=== PATIENT | male | born 1950 | race Caucasian/White ===

== ENCOUNTER → 2017-06-26 15:03 | Outpatient (CLI) | payer MEDICARE, BC, SELFPAY ==
[2017-06-26 18:14] LABS: BUN 19 mg/dL (7-18); BUN/Creat Ratio 16.7 RATIO (10-20); Creatinine, Serum 1.14 mg/dL (0.70-1.30); EST Glomerular Filtration Rate 69 mL/min (>60); Est Glom Filt Rate - Afr Amer 83 mL/min (>60); Glucose 93 mg/dL (74-106)
[2017-06-26 18:15] LABS: ALB/GLOB Ratio 1.1 RATIO (0.9-2.4); AST(SGOT) 30 U/L (15-37); Alanine Aminotransfer ALT/SGPT 33 U/L (16-61); Albumin, Serum 4.2 g/dL (3.2-5.0); Alkaline Phosphatase 76 U/L (45-117); Anion Gap 9 (5-15); Calcium,Total 8.9 mg/dL (8.5-10.1); Chloride 102 mmol/L (98-107); Globulin 3.8 g/dL (2.2-4.2); Potassium 3.6 mmol/L (3.5-5.1); Sodium Level 139 mmol/L (136-145)
== END ==
PROVIDERS: Family Provider Family Medicine; PCP Family Medicine; Visit Provider Family Medicine
DX: I10 Essential (primary) hypertension (principal)
CPT/HCPCS: 36415; 80053

== ENCOUNTER → 2017-07-11 08:36 | Outpatient (CLI) | payer MEDICARE, BC, SELFPAY ==
--- NOTE | 2017-07-11 08:40 | AAAS_ITS ---
Reason For Study: AAA screening Aorta Measurements Aorta Doppler Measurements Proximal aorta measures1.5 x 1.6cm. in cross- Peak systolic flow velocities within the proximal sectional axis. aorta measure 62.9 cm/sec. Proximal aorta measures1.5cm. in longitudinal Peak systolic flow velocities within the mid axis. aorta measure 86.6 cm/sec. Mid aorta measures1.5 x 1.4cm. in cross-sectionalPeak systolic flow velocities within the distal axis. aorta measure 72.0 cm/sec. Mid aorta measures1.4cm. in longitudinal axis. Distal aorta measures1.3 x 1.4cm. in cross- sectional axis. Distal aorta measures1.4cm. in longitudinal axis. Left Iliac Artery Left iliac artery measures .82 cm. in the longitudinal axis. Left iliac artery measures .87 x .88 cm. in the cross-sectional axis. Peak systolic velocity in the left iliac artery measures 102.0 cm/sec. Right Iliac Artery Right iliac artery measures .82 cm. in the longitudinal axis. Right iliac artery measures .81 x .83 cm. in the cross-sectional axis. Peak systolic velocity in the right iliac artery measures 117.0 cm/sec. Procedure Aorta IVC Iliac vasculature or bypass grafts [id number]. Exam performed in department. Interpretation Summary The dimensions of the intra-abdominal aorta are normal, without evidence of aneurysmal dilatation. The iliac arteries are also normal in size bilaterally. The intra-abdominal aorta and iliac arteries are patent, demonstrating normal, pulsatile arterial flow and peak systolic velocities. Ordering Physician: Ignacio Holloway Referring Physician: Ignacio Holloway Performed By: Melly Salguero RVT
== END ==
PROVIDERS: Family Provider Family Medicine; PCP Family Medicine; Visit Provider Family Medicine
DX: Z00.00 Encounter for general adult medical examination without abnormal findings (principal); I10 Essential (primary) hypertension
CPT/HCPCS: 76706

== ENCOUNTER → 2017-12-25 10:08 | Outpatient (CLI) | payer MEDICARE, BC, SELFPAY ==
--- NOTE | 2017-12-25 10:12 | RAD_ITS ---
STUDY: X-RAY - LEFT KNEE REASON FOR EXAM: Male, 67 years old. Osteoarthritis of the knee TECHNIQUE: 4 view(s) of the knee. Including weightbearing view COMPARISON: None. FINDINGS: Normal visualized distal femur. Normal visualized proximal tibia and fibula. Normal proximal tibiofibular articulation. Normal medial femorotibial compartment. Normal lateral femorotibial compartment. There is mild degenerative arthrosis of the patellofemoral articulation. Joint spaces appear maintained The soft tissue structures are unremarkable. RAD/Knee 4 or More Views IMPRESSION: Minimal patellofemoral joint degenerative change. Normal joint spacing. Electronically Signed: Manuel Arthur DO at 8:22 EDT Tel , Service support ,
--- NOTE | 2017-12-25 10:12 | RAD_ITS ---
STUDY: X-RAY RIGHT FOOT, FIRST TOE REASON FOR EXAM: Male, 67 years old. First toe pain TECHNIQUE: 3 view(s) of the toe were obtained. COMPARISON: None. FINDINGS: Normal visualized metatarsus. There is arthrosis of the metatarsophalangeal (M.T.P.) joint. Normal interphalangeal joints. Normal phalanges and interphalangeal joints. The soft tissue structures are unremarkable. RAD/Toe(s) Min 2 Views IMPRESSION: Minimal osteophytosis at the first metatarsophalangeal joint. Electronically Signed: Manuel Arthur DO at 8:25 EDT Tel , Service support ,
--- NOTE | 2017-12-25 10:12 | RAD_ITS ---
STUDY: X-RAY LEFT FOOT, FIRST TOE REASON FOR EXAM: Male, 67 years old. First toe pain TECHNIQUE: 3 view(s) of the toe were obtained. COMPARISON: None. FINDINGS: Normal visualized metatarsus. There is arthrosis of the metatarsophalangeal (M.T.P.) joint. Normal interphalangeal joints. Normal phalanges and interphalangeal joints. There is no demonstrated fracture. The soft tissue structures are unremarkable. RAD/Toe(s) Min 2 Views IMPRESSION: Mild degenerative change at the first metatarsophalangeal joint. Electronically Signed: Manuel Arthur DO at 8:25 EDT Tel , Service support ,
== END ==
PROVIDERS: Family Provider Family Medicine; PCP Family Medicine; Visit Provider Family Medicine
DX: M17.10 Unilateral primary osteoarthritis, unspecified knee (principal); M79.674 Pain in right toe(s); M79.675 Pain in left toe(s)
CPT/HCPCS: 73564; 73660

== ENCOUNTER → 2017-12-28 12:08 | Outpatient (CLI) | payer MEDICARE, BC, SELFPAY ==
[2017-12-28 14:40] LABS: ALB/GLOB Ratio 1.1 RATIO (0.9-2.4); AST(SGOT) 26 U/L (15-37); Alanine Aminotransfer ALT/SGPT 38 U/L (16-61); Albumin, Serum 3.9 g/dL (3.2-5.0); Alkaline Phosphatase 77 U/L (45-117); Anion Gap 10 (5-15); BUN 24 mg/dL (7-18); BUN/Creat Ratio 18.8 RATIO (10-20); Calcium,Total 8.9 mg/dL (8.5-10.1); Chloride 105 mmol/L (98-107); Cholesterol 151 mg/dL (200); Creatinine, Serum 1.28 mg/dL (0.70-1.30); EST Glomerular Filtration Rate 60 mL/min (>60); Est Glom Filt Rate - Afr Amer 72 mL/min (>60); Globulin 3.7 g/dL (2.2-4.2); Glucose 101 mg/dL (74-106); High Density Lipoprotein 47 mg/dL; Potassium 3.7 mmol/L (3.5-5.1); Protein, Total 7.6 g/dL (6.4-8.2); Sodium Level 143 mmol/L (136-145); Triglycerides 134 mg/dL; Very Low Density Lipoprotein 27 mg/dL (5-40)
== END ==
PROVIDERS: Family Provider Family Medicine; PCP Family Medicine; Visit Provider Family Medicine
DX: I10 Essential (primary) hypertension (principal)
CPT/HCPCS: 36415; 80053; 80061

== ENCOUNTER → 2018-07-12 13:58 | Outpatient (CLI) | payer MEDICARE, BC, SELFPAY ==
[2018-07-12 16:12] LABS: Absolute Lymphocyte Count 1.29 X10^3/ul (0.83-4.51); Absolute Neutrophil Count 2.2 X10^3/uL (2.0-7.7); Basophil# 0.02 X10^3/uL; Basophil% 0.5 % (0-1); Eosinophil# 0.09 X10^3/uL; Eosinophils% 2.3 % (0-5); Hematocrit 41.3 % (40-54); Hemoglobin 14.2 g/dl (13.0-16.5); Lymphocyte # 1.29 X10^3/ul (4.0); Mean Corp Hgb Conc 34.4 g/gl (32-36); Mean Corpuscular Hgb 29.8 pg (27.0-32.0); Mean Corpuscular Volume 86.8 fL (80-94); Monocyte% 7.7 % (0-10); Neutrophil # 2.21 X10^3/uL (2.7-7.7); Neutrophil % 56.5 % (47-70); POSITIVE COUNT NO; POSITIVE DIFFERENTIAL NO; POSITIVE MORPHOLOGY NO; Platelet Count 211 K/mm3 (150-450); RBC Distribution Width CV 12.3 % (11.6-14.6); RBC Distribution Width SD 38.3 fl (35.1-43.9); Red Blood Count 4.76 M/mm3 (4.6-6.2); White Blood Count 3.9 K/mm3 (4.4-11.0)
[2018-07-12 16:34] LABS: ALB/GLOB Ratio 1.1 RATIO (0.9-2.4); AST(SGOT) 24 U/L (15-37); Alanine Aminotransfer ALT/SGPT 35 U/L (16-61); Albumin, Serum 4.1 g/dL (3.2-5.0); Alkaline Phosphatase 82 U/L (45-117); Anion Gap 8 (5-15); BUN 21 mg/dL (7-18); BUN/Creat Ratio 18.8 RATIO (10-20); Calcium,Total 8.9 mg/dL (8.5-10.1); Chloride 104 mmol/L (98-107); Cholesterol 150 mg/dL (200); Creatinine, Serum 1.12 mg/dL (0.70-1.30); EST Glomerular Filtration Rate 70 mL/min (>60); Est Glom Filt Rate - Afr Amer 84 mL/min (>60); Globulin 3.6 g/dL (2.2-4.2); Glucose 95 mg/dL (74-106); High Density Lipoprotein 48 mg/dL; PSA,Total - Annual Screen 2.96 ng/mL (0.00-4.00); Protein, Total 7.7 g/dL (6.4-8.2); Sodium Level 140 mmol/L (136-145); Triglycerides 163 mg/dL; Very Low Density Lipoprotein 33 mg/dL (5-40)
== END ==
PROVIDERS: Family Provider Family Medicine; PCP Family Medicine; Visit Provider Family Medicine
DX: Z00.01 Encounter for general adult medical examination with abnormal findings (principal); I10 Essential (primary) hypertension; E78.5 Hyperlipidemia, unspecified; Z12.5 Encounter for screening for malignant neoplasm of prostate
CPT/HCPCS: 36415; 80053; 80061; 84153; 85025; G0103

== ENCOUNTER 2018-12-05 06:43 | Day surgery (SDC) | payer MEDICARE, BC, SELFPAY ==
[2018-12-05 07:01] VITALS: BP 141/82; PULSE 68; RESP 16; TEMP 36.5; O2SAT 98; BMI 24.7
[2018-12-05] MEDS: Lactated Ringers 1,000 ML 100 ML IV (07:13)
--- NOTE | 2018-12-05 07:39 | H&P.OPEN ---
History of Present Illness Date of Admission: 12/05/18 The patient is a 68 year old M presents for screening colonoscopy. Patient's last colonoscopy was about 10 years ago per patient it was negative. Patient denies any family history of colon cancer. Denies any abdominal pain, nausea, vomiting, reflux. Patient has bowel movements about every day denies any blood in stool. Past Medical/Surgical History - Planned Operation Planned Operative Procedure/s: COLONOSCOPY/EGD Date of Operative Procedure: 12/05/18 Permit Signed: Yes S.O.S: No Is This Patient Having a Total Joint: No - Previous Hospitalizations/Surgeries HX Hospitalizations: No HX of Surgeries: HERNIA?laparoscopic bilateral inguinal. COLONOSCOPY Any Problems With Anesthesia: No You/Your Family Experience Fever (Hyperthermia) With Anes: No Cholinesterase deficiency: No - Cardiovascular Hx Chest Pain within Last 2 months: No Hx of Irregular Heartbeat and/or Afib: No Hx Heart Attack: No Hx Congestive Heart Failure: No Hx Rheumatic Fever: No Hx Hypertension: Yes - ON MED, CONTROLLED Hx Internal Defibrillator: No Hx Pacemaker: No Hx Cardiac Catheterization: No Hx Cardiac Surgery/Stents/Etc.: No Hx Stress Test: Yes - > 10 YRS AGO HX Edema: No Hx Pain in Legs when Walking/Leg Cramps: No - Respiratory Chronic Cough: No HX of Shortness of Breath: No Hoarseness: No Hx Chronic Obstructive Pulmonary Disease (COPD): No Hx Asthma: No Hx Emphysema: No Hx Sleep Apnea: No Hx Oxygen Use at Home: No Hx Respiratory Tract Infection/Cold (presently): No Do You Snore Loudly (louder than talking or can be heard): No Do You Often Feel Tired/ Fatigued/ Sleepy Dring Daytime?: No Has Anyone Observed You Stop Breathing During Sleep?: No Result (for STOP score): Negative Hx Smoking: No Smoking Status: Never smoker - Gastrointestinal Hx Gastroesophageal Reflux: No Hx Gastrointestinal Disorders: No Hx Gastrointestinal Bleed: No Hx Ulcer: No Hx Hiatal Hernia: No Difficulty Chewing/Swallowing: No Recent Onset of Swallowing Problems: No Special diet followed at home: No Hx Unplanned Weight Loss of 20#: No HX Unplanned Weight Gain of 20#: No - Neurological Hx Seizures: No HX Syncope/Blackout Spells/Unconsciousness: No Hx CVA/Stroke: No Hx Transient Ischemic Attacks (TIA): No Hx Multiple Sclerosis: No Hx Parkinson's Disease: No Hx Head/Neck Injury: No Hx Headaches: No Hx Back Injury/Pain: No Recent Onset of Speech Difficulty: No Restless Legs: No Does patient have nerve stimulator: No - Blood Disorder Hx Leukemia: No Bleeding Tendencies: No Hx Deep Vein Thrombosis: No Hx High Cholesterol: Yes - ON MED Blood Transmitted Disease: No Hx Hepatitis: No Hx Cirrhosis: No Hx Anemia: No Hx Blood Disorders: No - Genitourinary Hx Renal Disease: No - Musculoskeletal Hx Arthritis: No Hx Rheumatoid Arthritis: No Hx Gout: No Recent Onset of an Orthopedic Problem: No - Endocrine Hx Diabetes: No Thyroid Disease: No Hx Steroid Therapy: No - Psycho/Social Hx Substance Use: No Hx Alcohol Use: No Hx Anxiety: No Hx Depression: No Mental Illness: No Hx Dementia: No - Miscellaneous Hx Cancer: No Recent Exposure to Contagious Disease: No Active MRSA: No Hx of C-Diff: No Any Loose Teeth: No Allergies No Known Allergies Allergy (Verified 12/03/18 14:25) - Discharge Is Pt Admitted From a Skilled Nursing, or a Halfway: No Who Could Help: After D/C, Where Do you Plan to Go: Return Home - Physical Exam General: Alert, Oriented x3, Cooperative, No apparent distress HEENT: Atraumatic Lungs: Normal air movement Cardiovascular: Regular rate Abdomen: Soft, Non Tender, Non-Distended Extremities: No clubbing, No cyanosis, No edema Neurological: Cranial nerves II-XII grossly intact Psych/Mental Status: Normal Affect Vital Signs Temp Pulse Resp BP Pulse Ox 97.7 F L 68 16 141/82 H 98 12/05/18 07:01 12/05/18 07:01 12/05/18 07:01 12/05/18 07:01 12/05/18 07:01 Oxygen Delivery Method Room Air Weight: 172 lb 9.951 oz Body Mass Index (BMI) 24.7 Assessment/Plan 68-year-old male for screening for colon cancer Surgery Risks - Colonoscopy I discussed with the patient the risks of the procedure: Yes Risks Include but are not Limited To: Risks include but are not limited to: Bleeding, perforation requiring further surgery, inability to complete colonoscopy requiring barium enema. Patient had no further questions
[2018-12-05 08:20] VITALS: BP 106/68; BP 141/82; PULSE 80; RESP 16; TEMP 36.2; O2SAT 97
--- NOTE | 2018-12-05 08:23 | OP.ENDO_ITS ---
12/05/2018 Lacy Menard [place] [id number] [address] Re : Colonoscopy procedure for Keith Frederick Dear Dr. Menard This procedure was performed on Wednesday, December 05, 2018. My impressions and recommendations are as follows: Impressions : - Diverticulosis in the sigmoid colon, in the descending colon and in the ascending colon. - The examination was otherwise normal on direct and retroflexion views. - No specimens collected. Recommendations : - Discharge patient to home. - High fiber diet. - Continue present medications. - Repeat colonoscopy in 10 years for screening purposes. My findings are described in the full procedure note, which is enclosed. If I can be of further assistance, please feel free to contact me at Doctor phone number(s): , Work: . Sincerely, MD María Cyr MD 12/05/2018 8:22:37 AM This report has been signed electronically.
[2018-12-05 08:25] VITALS: BP 115/67; BP 141/82; PULSE 70; RESP 16; O2SAT 96
[2018-12-05 08:30] VITALS: BP 116/64; BP 141/82; PULSE 65; RESP 16; O2SAT 95
[2018-12-05 08:35] VITALS: BP 118/69; BP 141/82; PULSE 60; RESP 16; TEMP 36.1; O2SAT 98
[2018-12-05 09:11] VITALS: BP 141/82
== END 2018-12-05 09:12 | disposition home or self-care (01) ==
LOC: EN 06:45 → AC 06:46
PROVIDERS: Family Provider Family Medicine; PCP Family Medicine; Referring Provider Family Medicine; Visit Provider Surgery
PROC: 0DJD8ZZ Inspection of Lower Intestinal Tract, Via Natural or Artificial Opening Endoscopic (ICD-10-PCS; CPT 45378; principal; 2018-12-05 07:55)
DX: Z12.11 Encounter for screening for malignant neoplasm of colon (principal); K57.30 Diverticulosis of large intestine without perforation or abscess without bleeding; I10 Essential (primary) hypertension; E78.00 Pure hypercholesterolemia, unspecified; Z79.82 Long term (current) use of aspirin; Z79.899 Other long term (current) drug therapy
CPT/HCPCS: G0121; J7120

== ENCOUNTER → 2019-10-04 07:55 | Outpatient (CLI) | payer MEDICARE, BC, SELFPAY ==
[2019-10-04 09:53] LABS: Absolute Lymphocyte Count 1.52 X10^3/uL (0.83-4.51); Absolute Neutrophil Count 2.2 X10^3/uL (2.0-7.7); Basophil# 0.02 X10^3/uL; Basophil% 0.5 % (0-1); Eosinophil# 0.14 X10^3/uL; Eosinophils% 3.3 % (0-5); Hematocrit 38.1 % (40-54); Hemoglobin 12.5 g/dL (13.0-16.5); Lymphocyte # 1.52 X10^3/ul (4.0); Lymphocyte % 35.7 % (19-41); Mean Corp Hgb Conc 32.8 g/dL (32-36); Mean Corpuscular Hgb 29.6 pg (27.0-32.0); Mean Corpuscular Volume 90.3 fL (80-94); Mean Platelet Vol. 10.1 fl (6.2-12.0); Monocyte# 0.35 X10^3/uL; Monocyte% 8.2 % (0-10); NRBC Flagged by Analyzer 0 % (0-5); Neutrophil # 2.22 X10^3/uL (2.7-7.7); Neutrophil % 52.1 % (47-70); Platelet Count 207 K/mm3 (150-450); RBC Distribution Width CV 12.7 % (11.6-14.6); RBC Distribution Width SD 41.1 fl (35.1-43.9); Red Blood Count 4.22 M/mm3 (4.6-6.2); White Blood Count 4.3 K/mm3 (4.4-11.0)
[2019-10-04 10:08] LABS: AST(SGOT) 27 U/L (15-37); Alanine Aminotransfer ALT/SGPT 35 U/L (16-61); Albumin, Serum 3.7 g/dL (3.2-5.0); Alkaline Phosphatase 74 U/L (45-117); Anion Gap 6 (5-15); BUN 21 mg/dL (7-18); BUN/Creat Ratio 16.7 RATIO (10-20); Calcium,Total 8.8 mg/dL (8.5-10.1); Chloride 102 mmol/L (98-107); Cholesterol 159 mg/dL (200); Creatinine, Serum 1.26 mg/dL (0.70-1.30); EST Glomerular Filtration Rate 61 mL/min (>60); Est Glom Filt Rate - Afr Amer 73 mL/min (>60); Globulin 3.6 g/dL (2.2-4.2); Glucose 121 mg/dL (74-106); High Density Lipoprotein 50 mg/dL; Potassium 3.2 mmol/L (3.5-5.1); Protein, Total 7.3 g/dL (6.4-8.2); Sodium Level 139 mmol/L (136-145); Triglycerides 134 mg/dL; Very Low Density Lipoprotein 27 mg/dL (5-40)
== END ==
PROVIDERS: PCP Family Medicine; Referring Provider Family Medicine; Visit Provider Family Medicine
DX: I10 Essential (primary) hypertension (principal); E78.5 Hyperlipidemia, unspecified
CPT/HCPCS: 36415; 80053; 80061; 85025

== ENCOUNTER → 2019-11-08 08:38 | Outpatient (CLI) | payer MEDICARE, BC, SELFPAY ==
[2019-11-08 09:52] LABS: Absolute Neutrophil Count 2.7 X10^3/uL (2.0-7.7); Basophil# 0.02 X10^3/uL; Basophil% 0.4 % (0-1); Eosinophil# 0.14 X10^3/uL; Eosinophils% 3.1 % (0-5); Hematocrit 42.8 % (40-54); Hemoglobin 14.3 g/dL (13.0-16.5); Lymphocyte % 28.6 % (19-41); Mean Corp Hgb Conc 33.4 g/dL (32-36); Mean Corpuscular Hgb 29.8 pg (27.0-32.0); Mean Corpuscular Volume 89.2 fL (80-94); Mean Platelet Vol. 9.7 fl (6.2-12.0); Monocyte# 0.36 X10^3/uL; Monocyte% 7.9 % (0-10); NRBC Flagged by Analyzer 0 % (0-5); Neutrophil # 2.71 X10^3/uL (2.7-7.7); Neutrophil % 59.8 % (47-70); Platelet Count 199 K/mm3 (150-450); RBC Distribution Width SD 39.2 fl (35.1-43.9); White Blood Count 4.5 K/mm3 (4.4-11.0)
[2019-11-08 10:13] LABS: Hemoglobin A1c 5.7 % (3.8-5.6)
[2019-11-08 10:15] LABS: Vitamin B12 365 pg/mL (211-911)
[2019-11-08 10:39] LABS: Ferritin 17 ng/mL (26-388); Iron 156 ug/dL (65-175); Iron Binding Capacity,Total 377 ug/dL (250-450); PERCENT IRON SATURATION 41.4 % (15.0-55.0)
== END ==
PROVIDERS: PCP Family Medicine; Referring Provider Family Medicine; Visit Provider Family Medicine
DX: R73.01 Impaired fasting glucose (principal); D64.9 Anemia, unspecified
CPT/HCPCS: 36415; 82607; 82728; 82746; 83036; 83540; 83550; 85025

== ENCOUNTER → 2020-09-03 14:20 | Outpatient (CLI) | payer MEDICARE, BC, SELFPAY ==
[2020-09-03 17:33] LABS: Absolute Lymphocyte Count 1.33 X10^3/uL (0.83-4.51); Absolute Neutrophil Count 2.7 X10^3/uL (2.0-7.7); Basophil# 0.03 X10^3/uL; Basophil% 0.7 % (0-1); Eosinophils% 2.2 % (0-5); Hematocrit 42.2 % (40-54); Hemoglobin 13.8 g/dL (13.0-16.5); Lymphocyte # 1.33 X10^3/ul (0.83-4.51); Mean Corp Hgb Conc 32.7 g/dL (32-36); Mean Corpuscular Hgb 29.9 pg (27.0-32.0); Mean Corpuscular Volume 91.5 fL (80-94); Mean Platelet Vol. 9.9 fl (6.2-12.0); Monocyte# 0.43 X10^3/uL; Monocyte% 9.4 % (0-10); NRBC Flagged by Analyzer 0 % (0-5); Neutrophil # 2.68 X10^3/uL (2.7-7.7); Neutrophil % 58.5 % (47-70); Platelet Count 215 K/mm3 (150-450); Red Blood Count 4.61 M/mm3 (4.6-6.2); White Blood Count 4.6 K/mm3 (4.4-11.0)
[2020-09-03 17:46] LABS: AST(SGOT) 31 U/L (15-37); Alanine Aminotransfer ALT/SGPT 32 U/L (16-61); Alkaline Phosphatase 68 U/L (45-117); Anion Gap 5 (5-15); BUN 24 mg/dL (7-18); BUN/Creat Ratio 19.7 RATIO (10-20); Calcium,Total 8.7 mg/dL (8.5-10.1); Chloride 104 mmol/L (98-107); Cholesterol 153 mg/dL (200); Creatinine, Serum 1.22 mg/dL (0.70-1.30); EST Glomerular Filtration Rate 63 mL/min (>60); Est Glom Filt Rate - Afr Amer 76 mL/min (>60); Glucose 90 mg/dL (74-106); High Density Lipoprotein 53 mg/dL; PSA,Total - Annual Screen 1.27 ng/mL (0.00-4.00); Potassium 3.5 mmol/L (3.5-5.1); Sodium Level 137 mmol/L (136-145); Triglycerides 131 mg/dL; Very Low Density Lipoprotein 26 mg/dL (5-40)
== END ==
PROVIDERS: PCP Family Medicine; Referring Provider Family Medicine; Visit Provider Family Medicine
DX: Z00.00 Encounter for general adult medical examination without abnormal findings (principal); I10 Essential (primary) hypertension; E78.5 Hyperlipidemia, unspecified; Z12.5 Encounter for screening for malignant neoplasm of prostate
CPT/HCPCS: 36415; 80053; 80061; 84153; 85025; G0103

== ENCOUNTER 2020-11-12 21:27 | Inpatient (IN) | payer MEDICARE, BC, SELFPAY ==
[2020-11-12 21:28] VITALS: BP 102/67; PULSE 98; RESP 16; TEMP 36.5; O2SAT 100; BMI 24.2
--- NOTE | 2020-11-12 22:09 | CT_ITS ---
STUDY: CT ABDOMEN AND PELVIS WITH CONTRAST REASON FOR EXAM: Male, 70 years old. diverticulitis RADIATION DOSAGE (If Supplied By Facility): CTDIvol = ( ) mGy, DLP = ( ) mGycm TECHNIQUE: Transaxial images were obtained from the dome of the diaphragm to the symphysis pubis without oral contrast. IV 100mL Isovue-300 was administered. Sagittal and coronal images were reconstructed. Individualized dose optimization techniques were used for this CT. COMPARISON: None. FINDINGS: Atelectasis/scarring within the lungs. The visualized portions of the heart are within normal limits. Normal liver. Normal gallbladder and extrahepatic biliary system. Normal spleen. Normal pancreas. Normal bilateral adrenal glands. 3 mm nonobstructing RIGHT nephrolithiasis. Subcentimeter low-attenuation structure LEFT kidney too small to characterize by CT criteria however statistically likely represent cysts. No hydronephrosis identified. Evaluation of bowel limited by lack of oral contrast material. Tiny hiatal hernia. Gastric wall thickening may be related to underdistention versus gastritis in the appropriate clinical setting. There is no dilated loops of small bowel by CT criteria. There are multiple colonic diverticula consistent with diverticulosis. The descending colonic wall thickening with associated stranding. Within the region of thickening and stranding there is a focal outpouching measuring 1.7 x 1.3 cm. The appendix is visualized and appears normal. There is diffuse atherosclerotic calcification of the abdominal aorta, without a demonstrated aneurysm. Normal inferior vena cava. Normal retroperitoneum. The urinary bladder is decompressed. Small amount of fluid within the pelvis as well as bilateral paracolic gutters. Evidence of prior bilateral inguinal hernia repair. There are diffuse degenerative changes of the visualized lumbar spine. Severe neural foraminal narrowing L4-L5. CT/Abdomen/Pelvis W IV Cont ONLY IMPRESSION: Diverticulosis. Descending colonic wall thickening with associated stranding likely representing acute diverticulitis. Within the area of colonic thickening and stranding there is an outpouching from the colon which may represent a prominent diverticulum. A contained perforation thought less likely. There is no definitive free air identified. There is fluid seen within the paracolic gutters and pelvis. Recommend follow-up to resolution. Nonobstructing RIGHT nephrolithiasis. Other findings as above. Electronically Signed: Con Raygoza MD at 23:41 EDT Tel , Service support ,
--- NOTE | 2020-11-12 22:10 | EX.ED.DYSGE1 ---
HPI History of Present Illness Chief Complaint: Abd Pain Informant: patient and spouse/S.O. Narrative Narrative: 70-year-old male presents the emergency room with left lower quadrant abdominal pain. He tells me that last week he was diagnosed clinically with diverticulitis and started on Cipro and Flagyl. He states that by Monday he was feeling better and it was 95% gone. Today he notes the pain came back and has been constant. He noted a temperature at home of 100.6. He notes his bowel movements have been loose but not diarrhea. No blood in the stool. He has never been diagnosed with diverticulitis prior to this event. No urinary symptoms. Pain does not radiate. Is worse with movement. [facility] Medical History High cholesterol Hypertension Home Medications aspirin 81 mg PO DAILY@0800 12/03/18 [History Last Taken Unknown] hydrochlorothiazide 25 mg PO DAILY 12/03/18 [History Last Taken Unknown] simvastatin 40 mg PO QHS 12/03/18 [History Last Taken Unknown] Allergy/AdvReac Type Severity Reaction Status Date / Time No Known Allergies Allergy Verified 11/12/20 21:28 Surgical History H/O hernia repair Social History (Updated 11/12/20 @ 22:[address] Mitchel Palm DO) Smoking Status: Never smoker substance use type: does not use ROS ROS ED Constitutional Constitutional ED: Reports fever(s); Denies chills or weight loss Eyes Eyes: Denies change in vision or diplopia ENT ENT ED: Denies ear pain, rhinorrhea or sore throat Cardiovascular Cardiovascular: Denies chest pain, orthopnea, palpitations or racing heartbeat Respiratory/Chest Respiratory/Chest: Denies cough, dyspnea or orthopnea Gastrointestinal Gastrointestinal: Reports abdominal pain; Denies diarrhea, nausea or vomiting Genitourinary Genitourinary ED: Denies dysuria, hematuria or urinary frequency Musculoskeletal Musculoskeletal: Denies arthralgias or myalgias Integumentary Denies abscess or rash Neurologic Neurologic: Denies headache(s) or weakness Psychiatric Psychiatric: Denies anxiety, depression, suicidal ideation or suicidal thoughts Endocrine Endocrinology: Denies polydipsia, polyphagia or polyuria Allergic/Immunologic Allergic/Immunologic ED: Denies mouth swelling, tongue swelling or urticaria EXAM Physical Exam Const Vital Signs: 11/12/20 21:28 Temperature 97.7 F L Temperature Source Temporal Pulse Rate 98 Respiratory Rate 16 Blood Pressure 102/67 Blood Pressure Mean 78 Pulse Ox 100 Oxygen Delivery Method Room Air Positive well nourished and well developed General Appearance ED: well developed HEENT Reports normocephalic, head/scalp atraumatic and moist mucous membranes Eyes PERRL and EOMs intact bilaterally Neck no lymphadenopathy, supple and no JVD Resp normal respiratory effort and clear to auscultation bilaterally Cardio regular rate, regular rhythm and no murmurs GI Palpation: soft, tender LLQ, guarding and rebound tenderness present Back/Spine no CVA tenderness and normal ROM Extremity normal to inspection General Extremety ED: Negative for edema General Extremity: Negative for edema Neuro oriented x3 and CN's II-XII intact bilaterally Sensorium / Orientation: alert Motor Exam: strength 5/5 throughout Psych mental status grossly normal Mood & Affect: Negative for depressed or tearful Skin no rashes or lesions noted and no wounds MDM MDM MDM Narrative Medical decision making narrative: White count 10.3. Lactic acid 1.1. Urinalysis negative. CT of the abdomen pelvis demonstrates acute sigmoid diverticulitis. Given his temperature at home and his recent treatment of diverticulitis with immediate return of symptoms patient was given Zosyn and our plan will be admission Lab Data Attestation: I reviewed the patient's lab results. Labs: Laboratory Results - last 24 hr 11/12/20 11/12/20 11/12/20 21:44 21:44 22:30 WBC 10.3 RBC 4.36 L Hgb 12.8 L Hct 38.6 L MCV 88.5 MCH 29.4 MCHC 33.2 RDW Std Deviation 37.9 RDW Coeff of [place] 11.9 Plt Count 298 MPV 9.1 Immature Gran % (Auto) 0.500 Neut % (Auto) 80.0 H Lymph % (Auto) 10.5 L [place] % (Auto) 7.8 Eos % (Auto) 0.9 Baso % (Auto) 0.3 Absolute Neuts (auto) 8.3 H Absolute Lymphs (auto) 1.08 Nucleated RBC % 0 Sodium 137 Potassium 3.7 Chloride 101 Carbon Dioxide 27.0 Anion Gap 9 BUN 16 Creatinine 1.05 Estim Creat Clear Calc 69.52 Est GFR (MDRD) Af Amer 90 Est GFR (MDRD) Non-Af 75 BUN/Creatinine Ratio 15.2 Glucose 120 H Lactic Acid Calcium 8.3 L Total Bilirubin 0.50 AST 24 ALT 42 Alkaline Phosphatase 62 Total Protein 7.4 Albumin 3.5 Globulin 3.9 Albumin/Globulin Ratio 0.9 Urine Color Yellow Urine Clarity Clear Urine pH 5.0 Ur Specific [place] 1.020 Urine Protein 15 H Urine Glucose (UA) Normal Urine Ketones 5 H Urine Occult Blood 10 H Urine Nitrite Negative Urine Bilirubin Negative Urine Urobilinogen Normal Ur Leukocyte Esterase 25 H Urine RBC 0 SEEN Urine WBC 0 SEEN Ur Squamous Epith Cells 0 SEEN Urine Bacteria 0 SEEN Urine Mucus 3+ 11/12/20 23:05 WBC RBC Hgb Hct MCV MCH MCHC RDW Std Deviation RDW Coeff of [place] Plt Count MPV Immature Gran % (Auto) Neut % (Auto) Lymph % (Auto) [place] % (Auto) Eos % (Auto) Baso % (Auto) Absolute Neuts (auto) Absolute Lymphs (auto) Nucleated RBC % Sodium Potassium Chloride Carbon Dioxide Anion Gap BUN Creatinine Estim Creat Clear Calc Est GFR (MDRD) Af Amer Est GFR (MDRD) Non-Af BUN/Creatinine Ratio Glucose Lactic Acid 1.1 Calcium Total Bilirubin AST ALT Alkaline Phosphatase Total Protein Albumin Globulin Albumin/Globulin Ratio Urine Color Urine Clarity Urine pH Ur Specific [place] Urine Protein Urine Glucose (UA) Urine Ketones Urine Occult Blood Urine Nitrite Urine Bilirubin Urine Urobilinogen Ur Leukocyte Esterase Urine RBC Urine WBC Ur Squamous Epith Cells Urine Bacteria Urine Mucus Radiography Diagnostic Testing: Radiology Impression Abdomen/Pelvis CT 11/12/20 22:09 IMPRESSION: Diverticulosis. Descending colonic wall thickening with associated stranding likely representing acute diverticulitis. Within the area of colonic thickening and stranding there is an outpouching from the colon which may represent a prominent diverticulum. A contained perforation thought less likely. There is no definitive free air identified. There is fluid seen within the paracolic gutters and pelvis. Recommend follow-up to resolution. Nonobstructing RIGHT nephrolithiasis. Other findings as above. Electronically Signed: Con Raygoza MD at 23:41 EDT Tel , Service support , Discharge Plan Triage Chief Complaint: Abd Pain ED Provider: Mitchel Palm Dx/Rx/DC Orders Prescriptions: No Action simvastatin 40 MG tablet 40 mg PO QHS RF: 0 hydrochlorothiazide 25 MG tablet 25 mg PO DAILY RF: 0 aspirin 81 MG tablet 81 mg PO DAILY@0800 RF: 0 Primary Care Provider: Lacy Menard
[2020-11-12 22:19] LABS: Absolute Lymphocyte Count 1.08 X10^3/uL (0.83-4.51); Absolute Neutrophil Count 8.3 X10^3/uL (2.0-7.7); Basophil# 0.03 X10^3/uL; Basophil% 0.3 % (0-1); Eosinophil# 0.09 X10^3/uL; Eosinophils% 0.9 % (0-5); Hematocrit 38.6 % (40-54); Hemoglobin 12.8 g/dL (13.0-16.5); Lymphocyte # 1.08 X10^3/ul (0.83-4.51); Lymphocyte % 10.5 % (19-41); Mean Corp Hgb Conc 33.2 g/dL (32-36); Mean Corpuscular Hgb 29.4 pg (27.0-32.0); Mean Corpuscular Volume 88.5 fL (80-94); Mean Platelet Vol. 9.1 fl (6.2-12.0); Monocyte% 7.8 % (0-10); NRBC Flagged by Analyzer 0 % (0-5); Neutrophil # 8.25 X10^3/uL (2.7-7.7); Platelet Count 298 K/mm3 (150-450); RBC Distribution Width CV 11.9 % (11.6-14.6); RBC Distribution Width SD 37.9 fl (35.1-43.9); Red Blood Count 4.36 M/mm3 (4.6-6.2); White Blood Count 10.3 K/mm3 (4.4-11.0)
[2020-11-12] MEDS: 0.9% Normal Saline 1,000 ML 1000 ML IV (22:20)
[2020-11-12] MEDS: Ondansetron 4 MG/2 ML Vial IV (22:20)
[2020-11-12] MEDS: Morphine 4 MG/ML Syringe IV (22:24)
[2020-11-12 22:36] LABS: ALB/GLOB Ratio 0.9 RATIO (0.9-2.4); AST(SGOT) 24 U/L (15-37); Alanine Aminotransfer ALT/SGPT 42 U/L (16-61); Albumin, Serum 3.5 g/dL (3.2-5.0); Alkaline Phosphatase 62 U/L (45-117); Anion Gap 9 (5-15); BUN 16 mg/dL (7-18); BUN/Creat Ratio 15.2 RATIO (10-20); Calcium,Total 8.3 mg/dL (8.5-10.1); Chloride 101 mmol/L (98-107); Creatinine, Serum 1.05 mg/dL (0.70-1.30); EST Glomerular Filtration Rate 75 mL/min (>60); Est Glom Filt Rate - Afr Amer 90 mL/min (>60); Estimated Creatinine Clearance 69.52 ml/min; Globulin 3.9 g/dL (2.2-4.2); Glucose 120 mg/dL (74-106); Potassium 3.7 mmol/L (3.5-5.1); Protein, Total 7.4 g/dL (6.4-8.2); Sodium Level 137 mmol/L (136-145)
[2020-11-12 22:43] LABS: Bacteria 0 SEEN /hpf (None Seen); Red Blood Cells-Urine 0 SEEN /hpf (0-5); Squamous Epithelial Cells - UA 0 SEEN /hpf (0-5); White Blood Cells 0 SEEN /hpf (0-5)
[2020-11-12 22:46] LABS: Color, Urine Yellow (Yellow); Glucose, Dipstick Normal (Normal); Ketone-Dipstick 5 mg/dl (Negative); Leukocyte Esterase-Dipstick 25 /ul (Negative); Nitrite-Dipstick Negative (Negative); Occult Blood-Urine 10 /ul (Negative); Protein-Dipstick 15 mg/dl (Negative); Urine Bilirubin Dipstick Negative (Negative); Urine Clarity Clear (Clear); Urine Urobilinogen Normal (Normal)
[2020-11-12 22:55] LABS: Mucous, Urine 3+ /hpf (<or=2+)
[2020-11-12 23:42] LABS: Lactic Acid 1.1 mmol/L (0.4-1.9)
[2020-11-13] VITALS (7 sets, daily range): BP systolic 112–132; BP diastolic 58–74; PULSE 60–80; RESP 16–18; TEMP 36.8–37.3; O2SAT 95–98; BMI 24.4
--- NOTE | 2020-11-13 00:02 | HP.PCM.HOS_ITS ---
HPI - General General Date of Admission: 11/13/20 Date of Service: 11/13/20 HPI Narrative JEANNINE PASCUAL, is a 70 M who presents with left lower quadrant pain that re started this morning. Patient stated that about a week and half ago, he had severe left lower quadrant pain and some loose stools. He did not have any fever or chills. He waited for about 3 to 4 days before seeing his primary care doctor. He was diagnosed with acute diverticulitis and was put on a week of Flagyl and Cipro. 5 days into taking the oral antibiotics, patient felt much improved. Patient completed his last dose of Flagyl and Cipro on the morning of the admission. This morning, he woke up with recurrence of severe left lower quadrant pain. He denied any nausea or vomiting or fever or chills. The pain was severe and he came to the emergency room at the urging of his family. At the time of being seen, he stated his pain is mild. He denied any hematochezia. He last had a bowel movement yesterday. Vitals in the ED have been stable. WBC count 10.3, hemoglobin 12.8, platelet count is 298. His CMP is unremarkable. Blood cultures are pending. CT of abdomen pelvis showed descending colon wall thickening consistent with acute diverticulitis, colonic outpouchings suggestive of diverticulum. [facility] Medical History High cholesterol Hypertension Home Medications aspirin 81 mg PO DAILY@0800 12/03/18 [History Last Taken Unknown] hydrochlorothiazide 25 mg PO DAILY 12/03/18 [History Last Taken Unknown] simvastatin 40 mg PO QHS 12/03/18 [History Last Taken Unknown] Allergy/AdvReac Type Severity Reaction Status Date / Time No Known Allergies Allergy Verified 11/12/20 21:28 Family History (Updated 11/13/20 @ 00:[address] Holly Pressley MD) Mother Hypertension Father Legionnaires' disease Surgical History H/O hernia repair Social History (Updated 11/13/20 @ 00:[address] Holly Pressley MD) household members: spouse Smoking Status: Never smoker alcohol intake: never substance use type: does not use ROS ROS Narrative Constitutional: Denies: Anorexia, Chills, Fever, Night Sweats, Weight Change Eyes: Denies: Blurred vision, Cataracts, Conjunctivae Inflammation, Pain, Redness, Vision Change HEENT: Denies: Difficulty Hearing, Difficulty Swallowing, Head Aches, Hearing Changes, Sinus Congestion, Sinus Drainage Cardiovascular: Denies: Chest Pain, Orthopnea, Palpitations Respiratory: Denies: Cough, Shortness of breath at rest, Sputum production Gastrointestinal: See HPI Genitourinary: Denies: Dysuria Musculoskeletal: Denies: Joint Pain, Joint stiffness, Joint swelling, Joint Tenderness Skin: Denies: Rash, Wounds Neurological: Denies: Numbness, Tingling, Focal weakness Vital Signs Vital Signs Vital Signs: 11/12/20 21:28 Temperature 97.7 F L Temperature Source Temporal Pulse Rate 98 Respiratory Rate 16 Blood Pressure 102/67 Blood Pressure Mean 78 Pulse Ox 100 Oxygen Delivery Method Room Air Weight Weight: 76.6 kg Body Mass Index (BMI) 24.2 Physical Exam Narrative Physical exam: General: Alert, Oriented x3, Cooperative, No apparent distress, Well developed HEENT: Atraumatic, furring or coating of the tongue Oral: Moist Mucosa Neck: Supple Lungs: Clear to auscultation Cardiovascular: HS I+II, regular, no murmurs Abdomen: Bowel Sounds Present, Soft, left lower quadrant tenderness with no guarding or rebound tenderness Extremities: No edema Skin: No rashes, No breakdown Neurological: Grossly intact Psych/Mental Status: Appropriate Results Lab / Micro Data Result Diagrams: 11/12/20 21:44 11/12/20 21:44 Labs: Laboratory Results - last 24 hr 11/12/20 21:44: WBC 10.3, RBC 4.36 L, Hgb 12.8 L, Hct 38.6 L, MCV 88.5, MCH 29.4, MCHC 33.2, RDW Std Deviation 37.9, RDW Coeff of Elyse 11.9, Plt Count 298, MPV 9.1, Immature Gran % (Auto) 0.500, Neut % (Auto) 80.0 H, Lymph % (Auto) 10.5 L, [place] % (Auto) 7.8, Eos % (Auto) 0.9, Baso % (Auto) 0.3, Absolute Neuts (auto) 8.3 H, Absolute Lymphs (auto) 1.08, Nucleated RBC % 0 11/12/20 21:44: Sodium 137, Potassium 3.7, Chloride 101, Carbon Dioxide 27.0, Anion Gap 9, BUN 16, Creatinine 1.05, Estim Creat Clear Calc 69.52, Est GFR (MDRD) Af Amer 90, Est GFR (MDRD) Non-Af 75, BUN/Creatinine Ratio 15.2, Glucose 120 H, Calcium 8.3 L, Total Bilirubin 0.50, AST 24, ALT 42, Alkaline Phosphatase 62, Total Protein 7.4, Albumin 3.5, Globulin 3.9, Albumin/Globulin Ratio 0.9 11/12/20 22:30: Urine Color Yellow, Urine Clarity Clear, Urine pH 5.0, Ur Specific [place] 1.020, Urine Protein 15 H, Urine Glucose (UA) Normal, Urine Ketones 5 H, Urine Occult Blood 10 H, Urine Nitrite Negative, Urine Bilirubin Negative, Urine Urobilinogen Normal, Ur Leukocyte Esterase 25 H, Urine RBC 0 SEEN, Urine WBC 0 SEEN, Ur Squamous Epith Cells 0 SEEN, Urine Bacteria 0 SEEN, Urine Mucus 3+ 11/12/20 23:05: Lactic Acid 1.1 Radiology Impression Abdomen/Pelvis CT 11/12/20 22:09 IMPRESSION: Diverticulosis. Descending colonic wall thickening with associated stranding likely representing acute diverticulitis. Within the area of colonic thickening and stranding there is an outpouching from the colon which may represent a prominent diverticulum. A contained perforation thought less likely. There is no definitive free air identified. There is fluid seen within the paracolic gutters and pelvis. Recommend follow-up to resolution. Nonobstructing RIGHT nephrolithiasis. Other findings as above. Electronically Signed: Con Raygoza MD at 23:41 EDT Tel , Service support , Assessment & Plan Assessment/Plan (1) Acute diverticulitis: PLAN: 1. Acute diverticulitis, status post failed outpatient therapy Patient completed 1 week of antibiotics on the morning of admission. CT of the abdomen and pelvis showed acute diverticulitis with a prominent di verticulum; possible contained perforation Stable vitals. No leukocytosis. Start on IV Cipro and Flagyl, clear liquid diet, advance diet as tolerated General surgery consult 2. Oral candidiasis, will start on nystatin switch and swallow 3. Hypertension, continue on HCTZ 4. Hyperlipidemia, continue on statin I discussed and explained in details the various types of CODE STATUS-full code, DNR CCA, DNR CC. Patient chose DNR CCA, no intubation. Time spent discussing CODE STATUS 17 minutes Charges/Coding Visit Charges Inpatient E&M: 73334 Init Hosp L3 Procedures Hospitalists Procedures: 38278 Advncd Care Plan 30 Min
[2020-11-13] MEDS: 0.9% Saline Lock 10 ML Syringe IV (01:12)
[2020-11-13] MEDS: 0.9% Normal Saline 1,000 ML 75 ML IV ×2 (01:16→15:23)
[2020-11-13] MEDS: metroNIDAZOLE 500 MG/100 ML BAG 100 MG IV ×3 (05:27→21:00)
[2020-11-13] MEDS: Heparin Injection (Vial) 5,000 UNIT/ML VIAL 5000 UNIT SC ×3 (05:29→21:00)
[2020-11-13 06:11] LABS: Absolute Lymphocyte Count 1.07 X10^3/uL (0.83-4.51); Absolute Neutrophil Count 6.7 X10^3/uL (2.0-7.7); Basophil# 0.02 X10^3/uL; Basophil% 0.2 % (0-1); Eosinophil# 0.13 X10^3/uL; Eosinophils% 1.5 % (0-5); Hematocrit 35.9 % (40-54); Hemoglobin 11.6 g/dL (13.0-16.5); Lymphocyte # 1.07 X10^3/ul (0.83-4.51); Lymphocyte % 12.3 % (19-41); Mean Corp Hgb Conc 32.3 g/dL (32-36); Mean Corpuscular Hgb 29.4 pg (27.0-32.0); Mean Corpuscular Volume 90.9 fL (80-94); Mean Platelet Vol. 9.1 fl (6.2-12.0); Monocyte% 8.1 % (0-10); NRBC Flagged by Analyzer 0 % (0-5); Neutrophil # 6.73 X10^3/uL (2.7-7.7); Neutrophil % 77.6 % (47-70); Platelet Count 256 K/mm3 (150-450); Red Blood Count 3.95 M/mm3 (4.6-6.2); White Blood Count 8.7 K/mm3 (4.4-11.0)
[2020-11-13 06:46] LABS: ALB/GLOB Ratio 0.9 RATIO (0.9-2.4); AST(SGOT) 19 U/L (15-37); Alanine Aminotransfer ALT/SGPT 32 U/L (16-61); Alkaline Phosphatase 50 U/L (45-117); Anion Gap 5 (5-15); BUN 14 mg/dL (7-18); BUN/Creat Ratio 14.4 RATIO (10-20); Calcium,Total 7.7 mg/dL (8.5-10.1); Chloride 105 mmol/L (98-107); Creatinine, Serum 0.97 mg/dL (0.70-1.30); EST Glomerular Filtration Rate 81 mL/min (>60); Est Glom Filt Rate - Afr Amer 98 mL/min (>60); Estimated Creatinine Clearance 75.26 ml/min; Globulin 3.4 g/dL (2.2-4.2); Glucose 113 mg/dL (74-106); Potassium 3.8 mmol/L (3.5-5.1); Protein, Total 6.4 g/dL (6.4-8.2); Sodium Level 138 mmol/L (136-145)
[2020-11-13] MEDS: Ciprofloxacin 400 MG/200 ML BAG 200 MG IV ×2 (09:33→22:10)
[2020-11-13] MEDS: NYSTATIN 500,000 UNIT/5 ML UDC 500000 UNIT PO ×4 (09:33→21:00)
[2020-11-13] MEDS: hydroCHLOROthiazide 25 MG Tablet PO (09:33)
--- NOTE | 2020-11-13 10:10 | CASEMGMT ---
RN CM Face to Face with patient for initial transition planning/care coordination assessment. RN CM introduced self and role at [facility]. Patient lying in bed, alert and oriented. Patient willing to participate in assessment and is able to answer all questions appropriately. Care providers, pharmacy, and demographics verified. Patient wishes to discharge home, denies need for home health at this time. Patient states he has no further needs or concerns at this time. CM to follow for discharge planning needs that may arise. PCP: Derian Specialists: none Preferred Pharmacy: [facility] Insurance: [employer] Prescription Benefit: yes Living Will/HPOA: yes, Celine Frederick HPOA LNOK: Living Arrangements: Patient lives with in a 1 story home with no steps to enter to home. Patient states he is independent at home. Transportation: self/ DME/HHC: Patient denies DME at home. Patient denies previous HHC. Disposition Plan: Patient to discharge home with family support and follow-up plans in place. Valentina NÚÑEZN, RN, CM
--- NOTE | 2020-11-13 12:44 | CON.PCM.SX_ITS ---
Assessment & Plan Assessment/Plan (1) Acute diverticulitis: PLAN: Continue IV antibiotics I do not believe that patient will require any surgical intervention during this hospitalization Will follow patient with you HPI Consult Data Date of Consult: 11/13/20 HPI Narrative HPI Narrative: JEANNINE PASCUAL, is a 70 M who presents with sudden onset of left lower quadrant abdominal pain. He had been diagnosed as an outpatient with acute diverticulitis and treated with oral antibiotics as an outpatient more than a week ago. Patient deferred CT scan at the time. Patient felt well for a few days on oral antibiotics, however, he noted increasing discomfort about 3-4 days ago. He states that his pain was 6-7 out of 1-10 upon presentation to [facility] ED. [facility] Medical History High cholesterol Hypertension Home Medications aspirin 81 mg PO DAILY@0800 12/03/18 [History Last Taken Unknown] hydrochlorothiazide 25 mg PO DAILY 12/03/18 [History Last Taken Unknown] simvastatin 40 mg PO QHS 12/03/18 [History Last Taken Unknown] Allergy/AdvReac Type Severity Reaction Status Date / Time No Known Allergies Allergy Verified 11/12/20 21:28 Family History Mother Hypertension Father Legionnaires' disease Surgical History H/O hernia repair Social History household members: spouse Smoking Status: Never smoker alcohol intake: never substance use type: does not use ROS Constitutional Constitutional: Denies fever(s) Cardiovascular Cardiovascular: Denies chest pain Respiratory/Chest Respiratory/Chest: Denies shortness of breath at rest Gastrointestinal Gastrointestinal: Reports abdominal pain Genitourinary Genitourinary: Denies difficulty urinating Neurologic Neurologic: Denies abnormal gait Hematologic/Lymphatic Hematologic/Lymphatic: Denies easy bleeding Physical Exam Const alert and oriented x3 HEENT normocephalic Eyes General Eye: normal appearance of both eyes Neck full ROM and supple Chest inspection of chest normal Resp normal respiratory effort GI soft to palpation GI Narrative: tender in left lower quadrant but no peritoneal signs Medical Records Data Medical Nutrition Assessment Dietitian: Nutrition Therapy Diagnosis Start: 11/13/20 11:47 Freq: Status: Active Protocol: Document 11/13/20 12:01 [facility] (Rec: 11/13/20 12:01 [facility] [id number]) Nutrition Malnutrition Evidence of Malnutrition Exists No Intake Problem Inadequate Oral Intake Etiology related to acute diverticulitis Signs/Symptoms as evidenced by clear liquid diet and <50% po intake x 10 days prior to admission. Status Active Problem Clinical Problem Altered GI Function Etiology related to acute diverticulitis Signs/Symptoms as evidenced by abd pain, complaints of no appetite and need for clear liquid diet. Status Active Problem Recommendation Dietitian Recommendations/Changes Will provide ensure clear w/ meals while pt on liquid diet for increased nutrition if consumed. As medically able, rec diet as tolerated to Transitional w/ goal of Cardiac diet Lab / Micro Data Result Diagrams: 11/13/20 05:50 11/13/20 05:50 Labs: Laboratory Results - last 24 hr 11/12/20 21:44: WBC 10.3, RBC 4.36 L, Hgb 12.8 L, Hct 38.6 L, MCV 88.5, MCH 29.4, MCHC 33.2, RDW Std Deviation 37.9, RDW Coeff of Elyse 11.9, Plt Count 298, MPV 9.1, Immature Gran % (Auto) 0.500, Neut % (Auto) 80.0 H, Lymph % (Auto) 10.5 L, [place] % (Auto) 7.8, Eos % (Auto) 0.9, Baso % (Auto) 0.3, Absolute Neuts (auto) 8.3 H, Absolute Lymphs (auto) 1.08, Nucleated RBC % 0 11/12/20 21:44: Sodium 137, Potassium 3.7, Chloride 101, Carbon Dioxide 27.0, Anion Gap 9, BUN 16, Creatinine 1.05, Estim Creat Clear Calc 69.52, Est GFR (MDRD) Af Amer 90, Est GFR (MDRD) Non-Af 75, BUN/Creatinine Ratio 15.2, Glucose 120 H, Calcium 8.3 L, Total Bilirubin 0.50, AST 24, ALT 42, Alkaline Phosphatase 62, Total Protein 7.4, Albumin 3.5, Globulin 3.9, Albumin/Globulin Ratio 0.9 11/12/20 22:30: Urine Color Yellow, Urine Clarity Clear, Urine pH 5.0, Ur Specific [place] 1.020, Urine Protein 15 H, Urine Glucose (UA) Normal, Urine Ketones 5 H, Urine Occult Blood 10 H, Urine Nitrite Negative, Urine Bilirubin Negative, Urine Urobilinogen Normal, Ur Leukocyte Esterase 25 H, Urine RBC 0 SEEN, Urine WBC 0 SEEN, Ur Squamous Epith Cells 0 SEEN, Urine Bacteria 0 SEEN, Urine Mucus 3+ 11/12/20 23:05: Lactic Acid 1.1 11/13/20 05:50: WBC 8.7, RBC 3.95 L, Hgb 11.6 L, Hct 35.9 L, MCV 90.9, MCH 29.4, MCHC 32.3, RDW Std Deviation 40.0, RDW Coeff of Elyse 12.0, Plt Count 256, MPV 9.1, Immature Gran % (Auto) 0.300, Neut % (Auto) 77.6 H, Lymph % (Auto) 12.3 L, [place] % (Auto) 8.1, Eos % (Auto) 1.5, Baso % (Auto) 0.2, Absolute Neuts (auto) 6.7, Absolute Lymphs (auto) 1.07, Nucleated RBC % 0 11/13/20 05:50: Sodium 138, Potassium 3.8, Chloride 105, Carbon Dioxide 28.0, Anion Gap 5, BUN 14, Creatinine 0.97, Estim Creat Clear Calc 75.26, Est GFR (MDRD) Af Amer 98, Est GFR (MDRD) Non-Af 81, BUN/Creatinine Ratio 14.4, Glucose 113 H, Calcium 7.7 L, Total Bilirubin 0.60, AST 19, ALT 32, Alkaline Phosphatase 50, Total Protein 6.4, Albumin 3.0 L, Globulin 3.4, Albumin/Globulin Ratio 0.9 Radiology Impression Abdomen/Pelvis CT 11/12/20 22:09 IMPRESSION: Diverticulosis. Descending colonic wall thickening with associated stranding likely representing acute diverticulitis. Within the area of colonic thickening and stranding there is an outpouching from the colon which may represent a prominent diverticulum. A contained perforation thought less likely. There is no definitive free air identified. There is fluid seen within the paracolic gutters and pelvis. Recommend follow-up to resolution. Nonobstructing RIGHT nephrolithiasis. Other findings as above. Electronically Signed: Con Raygoza MD at 23:41 EDT Tel , Service support ,
[2020-11-13] MEDS: Acetaminophen 325 MG Tablet 650 MG PO (13:54)
[2020-11-14 02:22] VITALS: BP 129/53; PULSE 63; RESP 16; TEMP 36.6; O2SAT 95
[2020-11-14] MEDS: Heparin Injection (Vial) 5,000 UNIT/ML VIAL 5000 UNIT SC ×3 (05:14→21:30)
[2020-11-14] MEDS: metroNIDAZOLE 500 MG/100 ML BAG 100 MG IV ×3 (05:14→21:29)
[2020-11-14 07:06] LABS: Absolute Neutrophil Count 4.5 X10^3/uL (2.0-7.7); Basophil# 0.03 X10^3/uL; Basophil% 0.5 % (0-1); Eosinophil# 0.14 X10^3/uL; Eosinophils% 2.4 % (0-5); Hematocrit 33.9 % (40-54); Hemoglobin 11.1 g/dL (13.0-16.5); Lymphocyte % 10.4 % (19-41); Mean Corp Hgb Conc 32.7 g/dL (32-36); Mean Corpuscular Hgb 29.4 pg (27.0-32.0); Mean Corpuscular Volume 89.7 fL (80-94); Mean Platelet Vol. 9.2 fl (6.2-12.0); Monocyte# 0.51 X10^3/uL; Monocyte% 8.9 % (0-10); NRBC Flagged by Analyzer 0 % (0-5); Neutrophil # 4.45 X10^3/uL (2.7-7.7); Neutrophil % 77.3 % (47-70); POSITIVE DIFFERENTIAL YES; Platelet Count 225 K/mm3 (150-450); RBC Distribution Width CV 12.3 % (11.6-14.6); RBC Distribution Width SD 39.8 fl (35.1-43.9); Red Blood Count 3.78 M/mm3 (4.6-6.2); White Blood Count 5.8 K/mm3 (4.4-11.0)
[2020-11-14 07:24] LABS: Anion Gap 7 (5-15); BUN 9 mg/dL (7-18); BUN/Creat Ratio 9.2 RATIO (10-20); Chloride 105 mmol/L (98-107); Creatinine, Serum 0.97 mg/dL (0.70-1.30); EST Glomerular Filtration Rate 81 mL/min (>60); Est Glom Filt Rate - Afr Amer 99 mL/min (>60); Estimated Creatinine Clearance 75.26 ml/min; Glucose 108 mg/dL (74-106); Potassium 3.6 mmol/L (3.5-5.1); Sodium Level 139 mmol/L (136-145)
[2020-11-14 07:29] LABS: Differential Indicated SCAN CRITERIA MET
[2020-11-14 10:00] VITALS: BP 113/56; PULSE 71; RESP 16; TEMP 36.9; O2SAT 95
[2020-11-14] MEDS: hydroCHLOROthiazide 25 MG Tablet PO (10:13)
[2020-11-14] MEDS: NYSTATIN 500,000 UNIT/5 ML UDC 500000 UNIT PO ×4 (10:13→21:30)
[2020-11-14] MEDS: Ciprofloxacin 400 MG/200 ML BAG 200 MG IV ×2 (10:13→22:49)
--- NOTE | 2020-11-14 10:25 | PN.HOSP_ITS ---
Subjective Subjective Still with left lower quadrant abdominal pain though it is a little bit better. He is tolerating clears Objective Data Objective Data Vital Signs: Vital Signs Temp Pulse Resp BP Pulse Ox 98.5 F 71 16 113/56 L 95 11/14/20 10:00 11/14/20 10:00 11/14/20 10:00 11/14/20 10:00 11/14/20 10:00 Oxygen Delivery Method Room Air Weight: 170 lb 2 oz Body Mass Index (BMI) 24.4 Intake & Output: Intake and Output for Last 24 Hours 11/13/20 11/14/20 11/15/20 03:59 03:59 03:59 Intake Total 1050 / 1050 1818.75 / 1818.75 1100 / 1100 Balance 1050 / 1050 1818.75 / 1818.75 1100 / 1100 Medical Nutrition Assessment Dietitian: Nutrition Therapy Diagnosis Start: 11/13/20 11:47 Freq: Status: Active Protocol: Document 11/13/20 12:01 [facility] (Rec: 11/13/20 12:01 [facility] [id number]) Nutrition Malnutrition Evidence of Malnutrition Exists No Intake Problem Inadequate Oral Intake Etiology related to acute diverticulitis Signs/Symptoms as evidenced by clear liquid diet and <50% po intake x 10 days prior to admission. Status Active Problem Clinical Problem Altered GI Function Etiology related to acute diverticulitis Signs/Symptoms as evidenced by abd pain, complaints of no appetite and need for clear liquid diet. Status Active Problem Recommendation Dietitian Recommendations/Changes Will provide ensure clear w/ meals while pt on liquid diet for increased nutrition if consumed. As medically able, rec diet as tolerated to Transitional w/ goal of Cardiac diet Lab / Micro Data Result Diagrams: 11/14/20 06:46 11/14/20 06:46 Labs: Laboratory Results - last 24 hr 11/14/20 06:46: WBC 5.8, RBC 3.78 L, Hgb 11.1 L, Hct 33.9 L, MCV 89.7, MCH 29.4, MCHC 32.7, RDW Std Deviation 39.8, RDW Coeff of Elyse 12.3, Plt Count 225, MPV 9.2, Immature Gran % (Auto) 0.500, Neut % (Auto) 77.3 H, Lymph % (Auto) 10.4 L, [place] % (Auto) 8.9, Eos % (Auto) 2.4, Baso % (Auto) 0.5, Absolute Neuts (auto) 4.5, Absolute Lymphs (auto) 0.60 L, Nucleated RBC % 0 11/14/20 06:46: Sodium 139, Potassium 3.6, Chloride 105, Carbon Dioxide 27.0, Anion Gap 7, BUN 9, Creatinine 0.97, Estim Creat Clear Calc 75.26, Est GFR (MDRD) Af Amer 99, Est GFR (MDRD) Non-Af 81, BUN/Creatinine Ratio 9.2 L, Glucose 108 H, Calcium 8.0 L Physical Exam Const alert, oriented x3 and no apparent distress General Appearance: cooperative HEENT normocephalic and moist oral mucous membranes Eyes PERRL, EOMs intact bilaterally and conjunctivae normal Neck supple and no JVD Resp normal respiratory effort, no retractions, no use of accessory muscles and clear to auscultation bilaterally Auscultation: Negative for crackles, rales, rhonchi or wheezes Cardio regular rate, regular rhythm, S1 normal heart sound, S2 normal heart sound and no murmurs GI soft to palpation and non-distended; Negative for hepatosplenomegaly Palpation: tender LLQ Extremity no clubbing, cyanosis or edema Skin no rashes or lesions noted Neuro no focal motor deficits and no sensory deficits noted Psych affect normal Appearance: appropriate Assessment & Plan Assessment/Plan (1) Acute diverticulitis: PLAN: 1. Acute diverticulitis, failed outpatient therapy -CT of the abdomen pelvis did show acute diverticulitis with possible contained perforation -appreciate surgical assistance -Continue with antibiotics -Tolerating clear liquid diet, will advance per surgical recommendations 2. HTN/HLD -Blood pressure stable -Continue with his home blood pressure medications -Continue with his statin 3. Oral candidiasis -Continue with nystatin DVT: Heparin Charges/Coding Visit Charges Inpatient E&M: 68526 Subs Hosp L2
--- NOTE | 2020-11-14 14:08 | PCM.PN.SRG ---
Subjective Subjective Patient states that he feels better, however, he still is tender in the left lower quadrant of the abdomen, tolerating clear liquid diet Objective Data Objective Data Vital Signs: Vital Signs Temp Pulse Resp BP Pulse Ox 98.5 F 71 16 113/56 L 95 11/14/20 10:00 11/14/20 10:00 11/14/20 10:00 11/14/20 10:00 11/14/20 10:00 Oxygen Delivery Method Room Air Weight: 77.167 kg Body Mass Index (BMI) 24.4 Intake & Output: Intake and Output for Last 24 Hours 11/12/20 11/13/20 11/14/20 23:59 23:59 23:59 Intake Total 1000 / 1000 1868.75 / 1868.75 1300 / 1300 Balance 1000 / 1000 1868.75 / 1868.75 1300 / 1300 Medical Nutrition Assessment Dietitian: Nutrition Therapy Diagnosis Start: 11/13/20 11:47 Freq: Status: Active Protocol: Document 11/13/20 12:01 [facility] (Rec: 11/13/20 12:01 [facility] [id number]) Nutrition Malnutrition Evidence of Malnutrition Exists No Intake Problem Inadequate Oral Intake Etiology related to acute diverticulitis Signs/Symptoms as evidenced by clear liquid diet and <50% po intake x 10 days prior to admission. Status Active Problem Clinical Problem Altered GI Function Etiology related to acute diverticulitis Signs/Symptoms as evidenced by abd pain, complaints of no appetite and need for clear liquid diet. Status Active Problem Recommendation Dietitian Recommendations/Changes Will provide ensure clear w/ meals while pt on liquid diet for increased nutrition if consumed. As medically able, rec diet as tolerated to Transitional w/ goal of Cardiac diet Lab / Micro Data Attestation: I reviewed the patient's lab results. Result Diagrams: 11/14/20 06:46 11/14/20 06:46 Labs: Laboratory Results - last 24 hr 11/14/20 06:46: WBC 5.8, RBC 3.78 L, Hgb 11.1 L, Hct 33.9 L, MCV 89.7, MCH 29.4, MCHC 32.7, RDW Std Deviation 39.8, RDW Coeff of Elyse 12.3, Plt Count 225, MPV 9.2, Immature Gran % (Auto) 0.500, Neut % (Auto) 77.3 H, Lymph % (Auto) 10.4 L, [place] % (Auto) 8.9, Eos % (Auto) 2.4, Baso % (Auto) 0.5, Absolute Neuts (auto) 4.5, Absolute Lymphs (auto) 0.60 L, Nucleated RBC % 0 11/14/20 06:46: Sodium 139, Potassium 3.6, Chloride 105, Carbon Dioxide 27.0, Anion Gap 7, BUN 9, Creatinine 0.97, Estim Creat Clear Calc 75.26, Est GFR (MDRD) Af Amer 99, Est GFR (MDRD) Non-Af 81, BUN/Creatinine Ratio 9.2 L, Glucose 108 H, Calcium 8.0 L Physical Exam Narrative abdomen is soft, but tender in the left lower quadrant, no peritoneal signs
[2020-11-14 15:21] VITALS: BP 121/57; PULSE 66; RESP 16; TEMP 37; O2SAT 95
[2020-11-14 20:05] VITALS: BP 139/63; PULSE 82; RESP 18; TEMP 37.3; O2SAT 96
[2020-11-14] MEDS: Atorvastatin Calcium 20 MG Tablet PO (21:30)
[2020-11-15 02:24] VITALS: BP 100/54; PULSE 59; RESP 18; TEMP 37.1; O2SAT 97
[2020-11-15] MEDS: metroNIDAZOLE 500 MG/100 ML BAG 100 MG IV ×3 (05:11→21:14)
[2020-11-15] MEDS: Heparin Injection (Vial) 5,000 UNIT/ML VIAL 5000 UNIT SC ×3 (05:12→21:23)
--- NOTE | 2020-11-15 05:26 | PCM.PN.SRG ---
Subjective Subjective patient states that he feels better, slowly improving passing flatus, loose bowel movements Objective Data Objective Data Vital Signs: Vital Signs Temp Pulse Resp BP Pulse Ox 98.7 F 59 L 18 100/54 L 97 11/15/20 02:24 11/15/20 02:24 11/15/20 02:24 11/15/20 02:24 11/15/20 02:24 Oxygen Delivery Method Room Air Weight: 77.167 kg Body Mass Index (BMI) 24.4 Intake & Output: Intake and Output for Last 24 Hours 11/13/20 11/14/20 11/15/20 23:59 23:59 23:59 Intake Total 1868.75 / 1868.75 2099 Balance 1868.75 / 1868.75 2099 Medical Nutrition Assessment Dietitian: Nutrition Therapy Diagnosis Start: 11/13/20 11:47 Freq: Status: Active Protocol: Document 11/13/20 12:01 [facility] (Rec: 11/13/20 12:01 [facility] [id number]) Nutrition Malnutrition Evidence of Malnutrition Exists No Intake Problem Inadequate Oral Intake Etiology related to acute diverticulitis Signs/Symptoms as evidenced by clear liquid diet and <50% po intake x 10 days prior to admission. Status Active Problem Clinical Problem Altered GI Function Etiology related to acute diverticulitis Signs/Symptoms as evidenced by abd pain, complaints of no appetite and need for clear liquid diet. Status Active Problem Recommendation Dietitian Recommendations/Changes Will provide ensure clear w/ meals while pt on liquid diet for increased nutrition if consumed. As medically able, rec diet as tolerated to Transitional w/ goal of Cardiac diet Lab / Micro Data Result Diagrams: 11/14/20 06:46 11/14/20 06:46 Labs: Laboratory Results - last 24 hr 11/14/20 06:46: WBC 5.8, RBC 3.78 L, Hgb 11.1 L, Hct 33.9 L, MCV 89.7, MCH 29.4, MCHC 32.7, RDW Std Deviation 39.8, RDW Coeff of Elyse 12.3, Plt Count 225, MPV 9.2, Immature Gran % (Auto) 0.500, Neut % (Auto) 77.3 H, Lymph % (Auto) 10.4 L, [place] % (Auto) 8.9, Eos % (Auto) 2.4, Baso % (Auto) 0.5, Absolute Neuts (auto) 4.5, Absolute Lymphs (auto) 0.60 L, Nucleated RBC % 0 11/14/20 06:46: Sodium 139, Potassium 3.6, Chloride 105, Carbon Dioxide 27.0, Anion Gap 7, BUN 9, Creatinine 0.97, Estim Creat Clear Calc 75.26, Est GFR (MDRD) Af Amer 99, Est GFR (MDRD) Non-Af 81, BUN/Creatinine Ratio 9.2 L, Glucose 108 H, Calcium 8.0 L Physical Exam Const oriented x3 General Appearance: cooperative and comfortable Orientation / Consciousness: awake Resp normal respiratory effort GI GI Narrative: abdomen is soft, but still with tenderness to palpation of left lower quadrant
[2020-11-15 06:28] LABS: Absolute Lymphocyte Count 0.86 X10^3/uL (0.83-4.51); Absolute Neutrophil Count 3.1 X10^3/uL (2.0-7.7); Basophil# 0.03 X10^3/uL; Basophil% 0.6 % (0-1); Eosinophil# 0.17 X10^3/uL; Eosinophils% 3.6 % (0-5); Hematocrit 34.1 % (40-54); Hemoglobin 11.5 g/dL (13.0-16.5); Lymphocyte # 0.86 X10^3/ul (0.83-4.51); Lymphocyte % 18.3 % (19-41); Mean Corp Hgb Conc 33.7 g/dL (32-36); Mean Corpuscular Hgb 29.7 pg (27.0-32.0); Mean Corpuscular Volume 88.1 fL (80-94); Mean Platelet Vol. 9.4 fl (6.2-12.0); Monocyte# 0.51 X10^3/uL; Monocyte% 10.9 % (0-10); NRBC Flagged by Analyzer 0 % (0-5); Neutrophil % 66.2 % (47-70); Platelet Count 259 K/mm3 (150-450); RBC Distribution Width CV 12.2 % (11.6-14.6); RBC Distribution Width SD 39.2 fl (35.1-43.9); Red Blood Count 3.87 M/mm3 (4.6-6.2); White Blood Count 4.7 K/mm3 (4.4-11.0)
[2020-11-15 06:56] LABS: Anion Gap 8 (5-15); BUN 8 mg/dL (7-18); BUN/Creat Ratio 8.6 RATIO (10-20); Calcium,Total 8.2 mg/dL (8.5-10.1); Chloride 103 mmol/L (98-107); Creatinine, Serum 0.92 mg/dL (0.70-1.30); EST Glomerular Filtration Rate 86 mL/min (>60); Est Glom Filt Rate - Afr Amer 105 mL/min (>60); Estimated Creatinine Clearance 79.35 ml/min; Glucose 101 mg/dL (74-106); Potassium 3.5 mmol/L (3.5-5.1); Sodium Level 137 mmol/L (136-145)
[2020-11-15 08:30] VITALS: BP 132/59; PULSE 72; RESP 18; TEMP 37; O2SAT 97
[2020-11-15] MEDS: Ciprofloxacin 400 MG/200 ML BAG 200 MG IV ×2 (10:28→22:38)
[2020-11-15] MEDS: NYSTATIN 500,000 UNIT/5 ML UDC 500000 UNIT PO ×4 (10:29→21:22)
[2020-11-15] MEDS: hydroCHLOROthiazide 25 MG Tablet PO (10:29)
--- NOTE | 2020-11-15 10:31 | PCM.PN.HOSP ---
Subjective Subjective Doing well, feels much better but still has some mild lower quadrant tenderness on the left, evaluated by surgery today who does not want to advance his diet Objective Data Objective Data Vital Signs: Vital Signs Temp Pulse Resp BP Pulse Ox 98.7 F 59 L 18 100/54 L 97 11/15/20 02:24 11/15/20 02:24 11/15/20 02:24 11/15/20 02:24 11/15/20 02:24 Oxygen Delivery Method Room Air Weight: 170 lb 2 oz Body Mass Index (BMI) 24.4 Intake & Output: Intake and Output for Last 24 Hours 11/14/20 11/15/20 11/16/20 03:59 03:59 03:59 Intake Total 1818.75 / 1818.75 2099 / 2099 450 / 450 Balance 1818.75 / 1818.75 2099 450 / 450 Medical Nutrition Assessment Dietitian: Nutrition Therapy Diagnosis Start: 11/13/20 11:47 Freq: Status: Active Protocol: Document 11/13/20 12:01 JOSUE (Rec: 11/13/20 12:01 JOSUE [id number]) Nutrition Malnutrition Evidence of Malnutrition Exists No Intake Problem Inadequate Oral Intake Etiology related to acute diverticulitis Signs/Symptoms as evidenced by clear liquid diet and <50% po intake x 10 days prior to admission. Status Active Problem Clinical Problem Altered GI Function Etiology related to acute diverticulitis Signs/Symptoms as evidenced by abd pain, complaints of no appetite and need for clear liquid diet. Status Active Problem Recommendation Dietitian Recommendations/Changes Will provide ensure clear w/ meals while pt on liquid diet for increased nutrition if consumed. As medically able, rec diet as tolerated to Transitional w/ goal of Cardiac diet Lab / Micro Data Result Diagrams: 11/15/20 05:22 11/15/20 05:22 Labs: Laboratory Results - last 24 hr 11/15/20 05:22: WBC 4.7, RBC 3.87 L, Hgb 11.5 L, Hct 34.1 L, MCV 88.1, MCH 29.7, MCHC 33.7, RDW Std Deviation 39.2, RDW Coeff of Elyse 12.2, Plt Count 259, MPV 9.4, Immature Gran % (Auto) 0.400, Neut % (Auto) 66.2, Lymph % (Auto) 18.3 L, [place] % (Auto) 10.9 H, Eos % (Auto) 3.6, Baso % (Auto) 0.6, Absolute Neuts (auto) 3.1, Absolute Lymphs (auto) 0.86, Nucleated RBC % 0 11/15/20 05:22: Sodium 137, Potassium 3.5, Chloride 103, Carbon Dioxide 26.0, Anion Gap 8, BUN 8, Creatinine 0.92, Estim Creat Clear Calc 79.35, Est GFR (MDRD) Af Amer 105, Est GFR (MDRD) Non-Af 86, BUN/Creatinine Ratio 8.6 L, Glucose 101, Calcium 8.2 L Micro: Microbiology 11/12/20 23:10 Blood Culture (Wb) - Anticubital Right Blood Culture - Preliminary No growth in 48 hours. 11/12/20 23:05 Blood Culture (Wb) - Anticubital Left Blood Culture - Preliminary No growth in 48 hours. Physical Exam Const alert, oriented x3 and no apparent distress General Appearance: cooperative HEENT normocephalic and moist oral mucous membranes Eyes PERRL, EOMs intact bilaterally and conjunctivae normal Neck supple and no JVD Resp normal respiratory effort, no retractions, no use of accessory muscles and clear to auscultation bilaterally Auscultation: Negative for crackles, rales, rhonchi or wheezes Cardio regular rate, regular rhythm, S1 normal heart sound, S2 normal heart sound and no murmurs GI soft to palpation and non-distended; Negative for hepatosplenomegaly Palpation: tender LLQ Extremity no clubbing, cyanosis or edema Skin no rashes or lesions noted Neuro no focal motor deficits and no sensory deficits noted Psych affect normal Appearance: appropriate Assessment & Plan Assessment/Plan (1) Acute diverticulitis: PLAN: 1. Acute diverticulitis, failed outpatient therapy -CT of the abdomen pelvis did show acute diverticulitis with possible contained perforation -appreciate surgical assistance -Continue with antibiotics -Tolerating clear liquid diet, will advance per surgical recommendations 2. HTN/HLD -Blood pressure stable -Continue with his home blood pressure medications -Continue with his statin 3. Oral candidiasis -Continue with nystatin DVT: Heparin Charges/Coding Visit Charges Inpatient E&M: 15563 Subs Hosp L2
[2020-11-15] MEDS: 0.9% Saline Lock 10 ML Syringe IV ×2 (10:38→21:19)
[2020-11-15 14:30] VITALS: BP 128/63; PULSE 68; RESP 16; TEMP 36.9; O2SAT 97
[2020-11-15 20:30] VITALS: BP 113/64; PULSE 68; RESP 16; TEMP 36.8; O2SAT 98
[2020-11-15] MEDS: Atorvastatin Calcium 20 MG Tablet PO (21:22)
[2020-11-16 03:30] VITALS: BP 109/63; PULSE 67; RESP 16; TEMP 36.3; O2SAT 97
[2020-11-16] MEDS: metroNIDAZOLE 500 MG/100 ML BAG 100 MG IV ×3 (06:01→22:50)
[2020-11-16] MEDS: Heparin Injection (Vial) 5,000 UNIT/ML VIAL 5000 UNIT SC ×3 (06:03→21:11)
[2020-11-16] MEDS: 0.9% Saline Lock 10 ML Syringe IV ×4 (06:06→21:10)
--- NOTE | 2020-11-16 07:10 | PCM.PN.SRG ---
Subjective Subjective Passing flatus. Pain has significantly improved but coating mixer tender in the left lower quadrant Objective Data Objective Data Abdomen is soft still some tenderness on the left lower quadrant no rebound guarding or peritoneal signs. Vital Signs: Vital Signs Temp Pulse Resp BP Pulse Ox 97.4 F L 67 16 109/63 97 11/16/20 03:30 11/16/20 03:30 11/16/20 03:30 11/16/20 03:30 11/16/20 03:30 Oxygen Delivery Method Room Air Weight: 170 lb 2 oz Body Mass Index (BMI) 24.4 Intake & Output: Intake and Output for Last 24 Hours 11/14/20 11/15/20 11/16/20 23:59 23:59 23:59 Intake Total 2099 / 2099 850 / 850 200 / 200 Output Total 0 / 0 Balance 2099 850 / 850 200 / 200 Medical Nutrition Assessment Dietitian: Nutrition Therapy Diagnosis Start: 11/13/20 11:47 Freq: Status: Active Protocol: Document 11/13/20 12:01 [facility] (Rec: 11/13/20 12:01 [facility] [id number]) Nutrition Malnutrition Evidence of Malnutrition Exists No Intake Problem Inadequate Oral Intake Etiology related to acute diverticulitis Signs/Symptoms as evidenced by clear liquid diet and <50% po intake x 10 days prior to admission. Status Active Problem Clinical Problem Altered GI Function Etiology related to acute diverticulitis Signs/Symptoms as evidenced by abd pain, complaints of no appetite and need for clear liquid diet. Status Active Problem Recommendation Dietitian Recommendations/Changes Will provide ensure clear w/ meals while pt on liquid diet for increased nutrition if consumed. As medically able, rec diet as tolerated to Transitional w/ goal of Cardiac diet Lab / Micro Data Result Diagrams: 11/15/20 05:22 11/15/20 05:22 Micro: Microbiology 11/12/20 23:10 Blood Culture (Wb) - Anticubital Right Blood Culture - Preliminary No growth in 48 hours. 11/12/20 23:05 Blood Culture (Wb) - Anticubital Left Blood Culture - Preliminary No growth in 48 hours. Assessment & Plan Assessment/Plan (1) Acute diverticulitis: PLAN: With reviewing of his CAT scan patient really needs to be pain-free before I feel comfortable sending him home. He had a microperforation and I believe he is going to benefit from having a little bit more bowel rest and IV antibiotics. Not ready for discharge today
[2020-11-16 08:06] VITALS: BP 127/71; PULSE 68; RESP 18; TEMP 36.7; O2SAT 98
[2020-11-16] MEDS: Ciprofloxacin 400 MG/200 ML BAG 200 MG IV ×2 (09:45→21:14)
[2020-11-16] MEDS: NYSTATIN 500,000 UNIT/5 ML UDC 500000 UNIT PO ×4 (09:46→21:10)
[2020-11-16] MEDS: hydroCHLOROthiazide 25 MG Tablet PO (09:46)
--- NOTE | 2020-11-16 11:06 | PCM.PN.HOSP ---
Subjective Subjective Improvement in his left lower quadrant pain though it is still there. Surgery would like him to be pain-free before discharging secondary to the possibility of a microperforation. Objective Data Objective Data Vital Signs: Vital Signs Temp Pulse Resp BP Pulse Ox 98.1 F 68 18 127/71 H 98 11/16/20 08:06 11/16/20 08:06 11/16/20 08:06 11/16/20 08:06 11/16/20 08:06 Oxygen Delivery Method Room Air Weight: 170 lb 2 oz Body Mass Index (BMI) 24.4 Intake & Output: Intake and Output for Last 24 Hours 11/15/20 11/16/20 11/17/20 03:59 03:59 03:59 Intake Total 2099 / 2099 1050 / 1050 100 / 100 Output Total 0 / 0 Balance 2099 1050 / 1050 100 / 100 Medical Nutrition Assessment Dietitian: Nutrition Therapy Diagnosis Start: 11/13/20 11:47 Freq: Status: Active Protocol: Document 11/13/20 12:01 JOSUE (Rec: 11/13/20 12:01 [facility] [id number]) Nutrition Malnutrition Evidence of Malnutrition Exists No Intake Problem Inadequate Oral Intake Etiology related to acute diverticulitis Signs/Symptoms as evidenced by clear liquid diet and <50% po intake x 10 days prior to admission. Status Active Problem Clinical Problem Altered GI Function Etiology related to acute diverticulitis Signs/Symptoms as evidenced by abd pain, complaints of no appetite and need for clear liquid diet. Status Active Problem Recommendation Dietitian Recommendations/Changes Will provide ensure clear w/ meals while pt on liquid diet for increased nutrition if consumed. As medically able, rec diet as tolerated to Transitional w/ goal of Cardiac diet Lab / Micro Data Result Diagrams: 11/15/20 05:22 11/15/20 05:22 Micro: Microbiology 11/12/20 23:10 Blood Culture (Wb) - Anticubital Right Blood Culture - Preliminary No growth in 48 hours. 11/12/20 23:05 Blood Culture (Wb) - Anticubital Left Blood Culture - Preliminary No growth in 48 hours. Physical Exam Const alert, oriented x3 and no apparent distress General Appearance: cooperative HEENT normocephalic and moist oral mucous membranes Eyes PERRL, EOMs intact bilaterally and conjunctivae normal Neck supple and no JVD Resp normal respiratory effort, no retractions, no use of accessory muscles and clear to auscultation bilaterally Auscultation: Negative for crackles, rales, rhonchi or wheezes Cardio regular rate, regular rhythm, S1 normal heart sound, S2 normal heart sound and no murmurs GI soft to palpation and non-distended; Negative for hepatosplenomegaly Palpation: tender LLQ Extremity no clubbing, cyanosis or edema Skin no rashes or lesions noted Neuro no focal motor deficits and no sensory deficits noted Psych affect normal Appearance: appropriate Assessment & Plan Assessment/Plan (1) Acute diverticulitis: PLAN: 1. Acute diverticulitis, failed outpatient therapy -CT of the abdomen pelvis did show acute diverticulitis with possible contained perforation -appreciate surgical assistance -Continue with antibiotics -Tolerating clear liquid diet, no advancement in his diet today will evaluate in the morning for possible discharge if his abdominal pain has resolved. 2. HTN/HLD -Blood pressure stable -Continue with his home blood pressure medications -Continue with his statin 3. Oral candidiasis -Continue with nystatin DVT: Heparin Charges/Coding Visit Charges Inpatient E&M: 66283 Subs Hosp L2
[2020-11-16 13:58] VITALS: BP 137/63; PULSE 63; RESP 18; TEMP 36.7; O2SAT 98
[2020-11-16 20:04] VITALS: BP 119/63; PULSE 66; RESP 16; TEMP 36.8; O2SAT 96
[2020-11-16] MEDS: Atorvastatin Calcium 20 MG Tablet PO (21:10)
[2020-11-17 02:15] VITALS: BP 100/58; PULSE 65; RESP 16; TEMP 36.4; O2SAT 98
[2020-11-17] MEDS: 0.9% Saline Lock 10 ML Syringe IV ×3 (05:35→13:58)
[2020-11-17] MEDS: Heparin Injection (Vial) 5,000 UNIT/ML VIAL 5000 UNIT SC ×2 (05:35→13:58)
[2020-11-17] MEDS: metroNIDAZOLE 500 MG/100 ML BAG 100 MG IV ×2 (05:37→13:58)
[2020-11-17 06:58] LABS: Absolute Lymphocyte Count 0.87 X10^3/uL (0.83-4.51); Absolute Neutrophil Count 2.2 X10^3/uL (2.0-7.7); Basophil# 0.03 X10^3/uL; Basophil% 0.8 % (0-1); Eosinophil# 0.17 X10^3/uL; Eosinophils% 4.6 % (0-5); Hematocrit 36.8 % (40-54); Hemoglobin 12.2 g/dL (13.0-16.5); Lymphocyte # 0.87 X10^3/ul (0.83-4.51); Lymphocyte % 23.6 % (19-41); Mean Corp Hgb Conc 33.2 g/dL (32-36); Mean Corpuscular Hgb 29.5 pg (27.0-32.0); Mean Corpuscular Volume 88.9 fL (80-94); Mean Platelet Vol. 9.3 fl (6.2-12.0); Monocyte# 0.42 X10^3/uL; Monocyte% 11.4 % (0-10); NRBC Flagged by Analyzer 0 % (0-5); Neutrophil # 2.19 X10^3/uL (2.7-7.7); Neutrophil % 59.3 % (47-70); Platelet Count 265 K/mm3 (150-450); RBC Distribution Width CV 12.3 % (11.6-14.6); RBC Distribution Width SD 39.3 fl (35.1-43.9); Red Blood Count 4.14 M/mm3 (4.6-6.2); White Blood Count 3.7 K/mm3 (4.4-11.0)
[2020-11-17 07:26] LABS: Anion Gap 8 (5-15); BUN 10 mg/dL (7-18); BUN/Creat Ratio 9.8 RATIO (10-20); Calcium,Total 8.5 mg/dL (8.5-10.1); Chloride 104 mmol/L (98-107); Creatinine, Serum 1.02 mg/dL (0.70-1.30); EST Glomerular Filtration Rate 77 mL/min (>60); Est Glom Filt Rate - Afr Amer 93 mL/min (>60); Estimated Creatinine Clearance 71.57 ml/min; Glucose 107 mg/dL (74-106); Potassium 3.5 mmol/L (3.5-5.1); Sodium Level 137 mmol/L (136-145)
--- NOTE | 2020-11-17 08:57 | PN.HOSP_ITS ---
Subjective Subjective Doing well, no issues overnight. States that his pain is completely resolved. We will advance his diet to a full liquid diet this morning and if he tolerates I can try a regular diet for lunch and if that is okay could potentially discharge if okay with surgery. Objective Data Objective Data Vital Signs: Vital Signs Temp Pulse Resp BP Pulse Ox 97.6 F L 65 16 100/58 L 98 11/17/20 02:15 11/17/20 02:15 11/17/20 02:15 11/17/20 02:15 11/17/20 02:15 Oxygen Delivery Method Room Air Weight: 170 lb 2 oz Body Mass Index (BMI) 24.4 Intake & Output: Intake and Output for Last 24 Hours 11/16/20 11/17/20 11/18/20 03:59 03:59 03:59 Intake Total 1050 / 1050 950 / 950 100 / 100 Output Total 0 / 0 Balance 1050 / 1050 950 / 950 100 / 100 Medical Nutrition Assessment Dietitian: Nutrition Therapy Diagnosis Start: 11/13/20 11:47 Freq: Status: Active Protocol: Document 11/16/20 13:29 SLA (Rec: 11/16/20 13:30 SLA [id number]) Nutrition Malnutrition Evidence of Malnutrition Exists No Intake Problem Inadequate Oral Intake Etiology related to acute diverticulitis Signs/Symptoms as evidenced by clear liquid diet and <50% po intake x 10 days prior to admission and continues on clear liquid diet since 11/13/20 in hospital. Status Active Problem Clinical Problem Altered GI Function Etiology related to acute diverticulitis Signs/Symptoms as evidenced by abd pain, complaints of no appetite and need for clear liquid diet. Status Active Problem Recommendation Dietitian Recommendations/Changes Will continue to provide ensure clear w/ meals while pt on liquid diet for increased nutrition if consumed. As medically able, rec diet as tolerated to Transitional w/ goal of Cardiac diet Lab / Micro Data Result Diagrams: 11/17/20 06:24 11/17/20 06:24 Labs: Laboratory Results - last 24 hr 11/17/20 06:24: WBC 3.7 L, RBC 4.14 L, Hgb 12.2 L, Hct 36.8 L, MCV 88.9, MCH 29.5, MCHC 33.2, RDW Std Deviation 39.3, RDW Coeff of Elyse 12.3, Plt Count 265, MPV 9.3, Immature Gran % (Auto) 0.300, Neut % (Auto) 59.3, Lymph % (Auto) 23.6, [place] % (Auto) 11.4 H, Eos % (Auto) 4.6, Baso % (Auto) 0.8, Absolute Neuts (auto) 2.2, Absolute Lymphs (auto) 0.87, Nucleated RBC % 0 11/17/20 06:24: Sodium 137, Potassium 3.5, Chloride 104, Carbon Dioxide 25.0, Anion Gap 8, BUN 10, Creatinine 1.02, Estim Creat Clear Calc 71.57, Est GFR (MDRD) Af Amer 93, Est GFR (MDRD) Non-Af 77, BUN/Creatinine Ratio 9.8 L, Glucose 107 H, Calcium 8.5 Micro: Microbiology 11/12/20 23:10 Blood Culture (Wb) - Anticubital Right Blood Culture - Preliminary No growth in 48 hours. 11/12/20 23:05 Blood Culture (Wb) - Anticubital Left Blood Culture - Preliminary No growth in 48 hours. Physical Exam Const alert, oriented x3 and no apparent distress General Appearance: cooperative HEENT normocephalic and moist oral mucous membranes Eyes PERRL, EOMs intact bilaterally and conjunctivae normal Neck supple and no JVD Resp normal respiratory effort, no retractions, no use of accessory muscles and clear to auscultation bilaterally Auscultation: Negative for crackles, rales, rhonchi or wheezes Cardio regular rate, regular rhythm, S1 normal heart sound, S2 normal heart sound and no murmurs GI soft to palpation, non-tender and non-distended; Negative for hepatosplenomegaly Extremity no clubbing, cyanosis or edema Skin no rashes or lesions noted Neuro no focal motor deficits and no sensory deficits noted Psych affect normal Appearance: appropriate Assessment & Plan Assessment/Plan (1) Acute diverticulitis: PLAN: 1. Acute diverticulitis, failed outpatient therapy -CT of the abdomen pelvis did show acute diverticulitis with possible contained perforation -appreciate surgical assistance -Continue with antibiotics -We will advance to full liquid diet this morning if he tolerates that can advance to regular diet for lunch and affect is okay plan for discharge today if okay with surgery. Would need to follow-up with surgery as an outpatient would continue with his antibiotics for another 7 to 10 days post discharge 2. HTN/HLD -Blood pressure stable -Continue with his home blood pressure medications -Continue with his statin 3. Oral candidiasis -resolved DVT: Heparin Charges/Coding Visit Charges Inpatient E&M: 43481 Subs Hosp L2
[2020-11-17 10:06] VITALS: BP 120/63; PULSE 76; RESP 18; TEMP 36.7; O2SAT 98
[2020-11-17] MEDS: Ciprofloxacin 400 MG/200 ML BAG 200 MG IV (10:09)
[2020-11-17] MEDS: NYSTATIN 500,000 UNIT/5 ML UDC 500000 UNIT PO ×2 (10:11→13:59)
[2020-11-17] MEDS: hydroCHLOROthiazide 25 MG Tablet PO (10:11)
--- NOTE | 2020-11-17 11:43 | PCM.PN.SRG ---
Subjective Subjective Patient is pain-free today. Objective Data Objective Data Abdomen is soft. Vital Signs: Vital Signs Temp Pulse Resp BP Pulse Ox 98.0 F 76 18 120/63 98 11/17/20 10:06 11/17/20 10:06 11/17/20 10:06 11/17/20 10:06 11/17/20 10:06 Oxygen Delivery Method Room Air Weight: 170 lb 2 oz Body Mass Index (BMI) 24.4 Intake & Output: Intake and Output for Last 24 Hours 11/15/20 11/16/20 11/17/20 23:59 23:59 23:59 Intake Total 850 / 850 900 / 1150 350 / 350 Output Total 0 / 0 Balance 850 / 850 900 / 1150 350 / 350 Medical Nutrition Assessment Dietitian: Nutrition Therapy Diagnosis Start: 11/13/20 11:47 Freq: Status: Active Protocol: Document 11/16/20 13:29 SLA (Rec: 11/16/20 13:30 SLA [id number]) Nutrition Malnutrition Evidence of Malnutrition Exists No Intake Problem Inadequate Oral Intake Etiology related to acute diverticulitis Signs/Symptoms as evidenced by clear liquid diet and <50% po intake x 10 days prior to admission and continues on clear liquid diet since 11/13/20 in hospital. Status Active Problem Clinical Problem Altered GI Function Etiology related to acute diverticulitis Signs/Symptoms as evidenced by abd pain, complaints of no appetite and need for clear liquid diet. Status Active Problem Recommendation Dietitian Recommendations/Changes Will continue to provide ensure clear w/ meals while pt on liquid diet for increased nutrition if consumed. As medically able, rec diet as tolerated to Transitional w/ goal of Cardiac diet Lab / Micro Data Result Diagrams: 11/17/20 06:24 11/17/20 06:24 Labs: Laboratory Results - last 24 hr 11/17/20 06:24: WBC 3.7 L, RBC 4.14 L, Hgb 12.2 L, Hct 36.8 L, MCV 88.9, MCH 29.5, MCHC 33.2, RDW Std Deviation 39.3, RDW Coeff of Elyse 12.3, Plt Count 265, MPV 9.3, Immature Gran % (Auto) 0.300, Neut % (Auto) 59.3, Lymph % (Auto) 23.6, [place] % (Auto) 11.4 H, Eos % (Auto) 4.6, Baso % (Auto) 0.8, Absolute Neuts (auto) 2.2, Absolute Lymphs (auto) 0.87, Nucleated RBC % 0 11/17/20 06:24: Sodium 137, Potassium 3.5, Chloride 104, Carbon Dioxide 25.0, Anion Gap 8, BUN 10, Creatinine 1.02, Estim Creat Clear Calc 71.57, Est GFR (MDRD) Af Amer 93, Est GFR (MDRD) Non-Af 77, BUN/Creatinine Ratio 9.8 L, Glucose 107 H, Calcium 8.5 Micro: Microbiology 11/12/20 23:10 Blood Culture (Wb) - Anticubital Right Blood Culture - Preliminary No growth in 48 hours. 11/12/20 23:05 Blood Culture (Wb) - Anticubital Left Blood Culture - Preliminary No growth in 48 hours. Assessment & Plan Assessment/Plan (1) Acute diverticulitis: PLAN: Okay for discharge today. May follow-up with myself in 1 week
--- NOTE | 2020-11-17 13:28 | PCM.DC ---
Discharge Instructions Diet Discharge Diet: No restrictions Activity Discharge Activity: Return to Normal Activity Dressing / Incision Call your doctor if you observe: Fever of 101 or Higher, Shortness of breath, Dizziness, Swelling in the ankles, Chest pain and Increased palpitations (irregular heartbeat) Follow Up Care Test Results: Test results from this visit will be discussed in further detail at your follow-up appointment, if applicable. Discharge Plan Admission Admit Date/Time: 11/13/20 00:02 Attending Provider: Poli Jim Primary Care Provider: Lacy Menard Consulting Providers: Suzette Verduzco Discharge Orders/Prescriptions Prescriptions: New ciprofloxacin HCl [Cipro] 500 mg tablet 500 mg PO Q12H Qty: 14 RF: 0 metronidazole [Flagyl] 500 mg tablet 500 mg PO Q8H Qty: 21 RF: 0 Continued simvastatin 40 MG tablet 40 mg PO QHS RF: 0 hydrochlorothiazide 25 MG tablet 25 mg PO DAILY RF: 0 aspirin 81 MG tablet 81 mg PO DAILY@0800 RF: 0 Referrals / Follow Up: Mitchel Hurtado MD [STAFF PHYSICIAN] - Within 1 Week Lacy Menard MD [Primary Care Provider] - Within 1 Week Disposition Disposition (needs filled in before D/C Order can be placed): Home, Self Care
--- NOTE | 2020-11-17 13:39 | DS.PCM_ITS ---
Providers Date of Admission: 11/13/20 Primary Care Physician: Dr. Lacy Menard MD Consultations 11/13/20 00:54 Consult: General Surgery Routine Consulting Provider: Suzette Verduzco Reason for Consult: Acute diverticulitis, s/p failed outpatient therapy, possible contperfation EMERGENT Consult: No MD Notified: Yes Date Notified: 11/13/20 Time Notified: 06:21 Method of Notification: Page Reason For Visit: ACUTE DIVERTICULITIS Diagnosis Discharge Diagnosis (1) Acute diverticulitis: Status: Acute Code(s): K57.92 - Diverticulitis of intestine, part unspecified, without perforation or abscess without bleeding Medications at Discharge Home Medications aspirin 81 mg PO DAILY@0800 12/03/18 hydrochlorothiazide 25 mg PO DAILY 12/03/18 simvastatin 40 mg PO QHS 12/03/18 ciprofloxacin HCl [Cipro] 500 mg PO Q12H #14 tab 11/17/20 metronidazole [Flagyl] 500 mg PO Q8H #21 tab 11/17/20 Hospital Course Operations None Procedures None Summary of Care Provided Minutes Spent on Discharge: 42 Hospital Course: Per HPI: JEANNINE PASCUAL, is a 70 M who presents with left lower quadrant pain that restarted this morning. Patient stated that about a week and half ago, he had severe left lower quadrant pain and some loose stools. He did not have any fever or chills. He waited for about 3 to 4 days before seeing his primary care doctor. He was diagnosed with acute diverticulitis and was put on a week of Flagyl and Cipro. 5 days into taking the oral antibiotics, patient felt much improved. Patient completed his last dose of Flagyl and Cipro on the morning of the admission. This morning, he woke up with recurrence of severe left lower quadrant pain. He denied any nausea or vomiting or fever or chills. The pain was severe and he came to the emergency room at the urging of his family. At the time of being seen, he stated his pain is mild. He denied any hematochezia. He last had a bowel movement yesterday. Vitals in the ED have been stable. WBC count 10.3, hemoglobin 12.8, platelet count is 298. His CMP is unremarkable. Blood cultures are pending. CT of abdomen pelvis showed descending colon wall thickening consistent with acute diverticulitis, colonic outpouchings suggestive of diverticulum. Hospital Course: 1. Acute diverticulitis failed outpatient therapy with possible microperforation?70-year-old male who follow-up with his PCP as an outpatient approximately 2 weeks ago when he was developing abdominal pain. He was started on antibiotics and completed the course and after he finished the antibiotics he developed worsening pain and present to the hospital. CT of the abdomen at that time demonstrated an acute diverticulitis with possible contained perforation. Surgery evaluated the patient and did not feel he needed surgery right away and was started on Cipro and Flagyl as well as n.p.o. He has slowly improved over his hospital course and currently denies any abdominal pain today. He was advanced off liquid diet to a regular diet which she has tolerated. Surgery felt that he was okay for discharge and I discussed the plan for discharge today with him and he expressed understanding of the risk and benefits of going home and like to go home today. We will continue with 7 days more of Cipro and Flagyl and he will need to follow-up with both his PCP as well as general surgery as an outpatient. 2. Hypertension, hyperlipidemia her chronic medical conditions complicates care. His home medications were continued were appropriate Medical Records Data Medical Nutrition Assessment Dietitian: Nutrition Therapy Diagnosis Start: 11/13/20 11:47 Freq: Status: Active Protocol: Document 11/16/20 13:29 [facility] (Rec: 11/16/20 13:30 [facility] [id number]) Nutrition Malnutrition Evidence of Malnutrition Exists No Intake Problem Inadequate Oral Intake Etiology related to acute diverticulitis Signs/Symptoms as evidenced by clear liquid diet and <50% po intake x 10 days prior to admission and continues on clear liquid diet since 11/13/20 in hospital. Status Active Problem Clinical Problem Altered GI Function Etiology related to acute diverticulitis Signs/Symptoms as evidenced by abd pain, complaints of no appetite and need for clear liquid diet. Status Active Problem Recommendation Dietitian Recommendations/Changes Will continue to provide ensure clear w/ meals while pt on liquid diet for increased nutrition if consumed. As medically able, rec diet as tolerated to Transitional w/ goal of Cardiac diet Weight / BMI Weight Weight: 170 lb 2 oz Body Mass Index (BMI) 24.4 ABG / Lab / Microbiology Data Result Diagrams: 11/17/20 06:24 11/17/20 06:24 Laboratory: Laboratory Results - last 24 hr 11/17/20 06:24: WBC 3.7 L, RBC 4.14 L, Hgb 12.2 L, Hct 36.8 L, MCV 88.9, MCH 29.5, MCHC 33.2, RDW Std Deviation 39.3, RDW Coeff of Elyse 12.3, Plt Count 265, MPV 9.3, Immature Gran % (Auto) 0.300, Neut % (Auto) 59.3, Lymph % (Auto) 23.6, [place] % (Auto) 11.4 H, Eos % (Auto) 4.6, Baso % (Auto) 0.8, Absolute Neuts (auto) 2.2, Absolute Lymphs (auto) 0.87, Nucleated RBC % 0 11/17/20 06:24: Sodium 137, Potassium 3.5, Chloride 104, Carbon Dioxide 25.0, Anion Gap 8, BUN 10, Creatinine 1.02, Estim Creat Clear Calc 71.57, Est GFR (MDRD) Af Amer 93, Est GFR (MDRD) Non-Af 77, BUN/Creatinine Ratio 9.8 L, Glucose 107 H, Calcium 8.5 Microbiology: Microbiology 11/12/20 23:10 Blood Culture (Wb) - Anticubital Right Blood Culture - Preliminary No growth in 48 hours. 11/12/20 23:05 Blood Culture (Wb) - Anticubital Left Blood Culture - Preliminary No growth in 48 hours. D/C Instructions Discharge Diet: No restrictions Call your doctor if you observe: Fever of 101 or Higher, Shortness of breath, Dizziness, Swelling in the ankles, Chest pain and Increased palpitations (irregular heartbeat) Meaningful Use Info Meaningful Use Diagnoses (Choose all that apply): None applicable Discharge Plan Admission Admit Date/Time: 11/13/20 00:02 Attending Provider: Poli Jim Primary Care Provider: Lacy Menard Consulting Providers: Suzette Verduzco Discharge Orders/Prescriptions Prescriptions: New ciprofloxacin HCl [Cipro] 500 mg tablet 500 mg PO Q12H Qty: 14 RF: 0 metronidazole [Flagyl] 500 mg tablet 500 mg PO Q8H Qty: 21 RF: 0 Continued simvastatin 40 MG tablet 40 mg PO QHS RF: 0 hydrochlorothiazide 25 MG tablet 25 mg PO DAILY RF: 0 aspirin 81 MG tablet 81 mg PO DAILY@0800 RF: 0 Referrals / Follow Up: Mitchel Hurtado MD [STAFF PHYSICIAN] - Within 1 Week Lacy Menard MD [Primary Care Provider] - Within 1 Week Disposition Disposition (needs filled in before D/C Order can be placed): Home, Self Care Charges/Coding Visit Charges Inpatient E&M: 88287 Disch Hosp
[2020-11-17 14:04] VITALS: BP 125/70; PULSE 67; RESP 18; TEMP 36.8; O2SAT 96
== END 2020-11-17 15:15 | disposition home or self-care (01) | DRG 392 ==
LOC: ED 22:21 → MS3 11-13 07:03
PROVIDERS: Admitting Provider Internal Medicine; Emergency Provider Emergency Medicine; PCP Family Medicine; Visit Provider Family Medicine
DX: K57.20 Diverticulitis of large intestine with perforation and abscess without bleeding (principal); B37.0 Candidal stomatitis; E78.00 Pure hypercholesterolemia, unspecified; E78.5 Hyperlipidemia, unspecified; I10 Essential (primary) hypertension; Z79.82 Long term (current) use of aspirin; Z79.899 Other long term (current) drug therapy
CPT/HCPCS: 36415; 74177; 80048; 80053; 81001; 83605; 85025; 87040; 97802; 99284; J7030; J7050; Q9967; A4216; J0744; J2405

== ENCOUNTER 2020-11-30 14:29 | Observation (INO) | payer MEDICARE, BC, SELFPAY ==
[2020-11-30 14:30] VITALS: BP 132/65; PULSE 91; RESP 18; TEMP 37.3; O2SAT 98; BMI 24.1
--- NOTE | 2020-11-30 14:31 | RAD_ITS ---
STUDY: X-RAY - LEFT FOOT CLINICAL: Male, 70 years old. PAIN TECHNIQUE: 3 view(s) of the foot. COMPARISON: None. FINDINGS: Normal talus, calcaneus, and tarsal bones. Normal visualized subtalar, talonavicular, calcaneocuboid, tarsal and tarsometatarsal articulations. Normal metatarsi. There is degenerative arthrosis of the metatarsophalangeal joint of the hallux . Normal tibial and fibular sesamoid bones. Normal interphalangeal joint of the great toe. Normal phalanges of the great toe. Normal second through fifth metatarsophalangeal joints. Normal interphalangeal joints and phalanges of the lesser toes. Vascular calcification. 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 Electronically Signed: Nicanor Ahn MD at 15:02 EDT , Service support ,
--- NOTE | 2020-11-30 16:57 | EKG12_ITS ---
Test Reason : Blood Pressure : / mmHG Vent. Rate : 074 BPM Atrial Rate : 074 BPM P-R Int : 154 ms QRS Dur : 078 ms QT Int : 378 ms P-R-T Axes : 051 073 040 degrees QTc Int : 419 ms Normal sinus rhythm Normal ECG Confirmed by ANGELA CALHOUN, SHANKAR ([id number]), editor managing director MARCUS CERVANTES ([id number]) on 12/03/2020 10:23:01 AM Referred By: LILIA Confirmed By:SHANKAR MILLER MD
--- NOTE | 2020-11-30 17:01 | EX.ED.DYSGE1 ---
HPI History of Present Illness Chief Complaint: Lower Extremity Injury Informant: patient and spouse/S.O. Onset/Context/Timing Onset: Days (Onset of pain Monday) Context: Sudden Onset Timing: Continuous Quality: Pain Location: Left foot Current Severity: Mild Maximum Severity: Severe Worsened by: Touch, movement, weightbearing Relieved by: Nothing Associated Symptoms Associated Symptoms: Fever and chills Narrative Narrative: Patient is a 70-year-old male with history of hypertension, hypercholesterolemia who was admitted earlier this month for acute diverticulitis. He is scheduled to have a colonoscopy by Dr. Hurtado this coming week. His primary care physician, Dr. Day had patient discontinue his hydrochlorothiazide. He denies history of gout or pseudogout. He admits to temperature of 100.8 ?F at home. He also had shaking chills according to the . Patient agreed he did. He denies headache, visual, ocular auditory symptoms. He denies upper respiratory symptoms. He denies cardiac symptoms. Denies GI or symptoms. He denies paresthesia, anesthesia or motor weakness. Prior similar symptoms: No Recent Illness/Hospitalization: Yes (Diverticulitis) [facility] Medical History High cholesterol Hypertension Home Medications aspirin 81 mg PO DAILY@0800 12/03/18 [History Last Taken Unknown] hydrochlorothiazide 25 mg PO DAILY 12/03/18 [History Last Taken Unknown] simvastatin 40 mg PO QHS 12/03/18 [History Last Taken Unknown] ciprofloxacin HCl [Cipro] 500 mg PO Q12H #14 tab 11/17/20 [Rx Last Taken Unknown] metronidazole [Flagyl] 500 mg PO Q8H #21 tab 11/17/20 [Rx Last Taken Unknown] Allergy/AdvReac Type Severity Reaction Status Date / Time No Known Allergies Allergy Verified 11/30/20 14:30 Family History Mother Hypertension Father Legionnaires' disease Surgical History H/O hernia repair Social History (Updated 11/30/20 @ 17:[address] Garry Almanzar MD) household members: spouse housing: house Smoking Status: Never smoker alcohol intake: never substance use type: does not use ROS ROS ED Constitutional Constitutional ED: Reports chills and fever(s); Denies subjective, sweats or weight loss Eyes Eyes: Denies blurry vision, change in vision or diplopia ENT ENT ED: Denies ear pain, rhinorrhea or sore throat Cardiovascular Cardiovascular: Denies chest pain, orthopnea, palpitations, paroxysmal nocturnal dyspnea or racing heartbeat Respiratory/Chest Respiratory/Chest: Denies cough, dyspnea, dyspnea on exertion, orthopnea or paroxysmal nocturnal dyspnea Gastrointestinal Gastrointestinal: Denies abdominal pain, diarrhea, nausea or vomiting Genitourinary Genitourinary ED: Denies dysuria, hematuria or urinary frequency Musculoskeletal Musculoskeletal: Denies arthralgias, back pain, myalgias or neck pain Integumentary Reports rash; Denies abscess Neurologic Neurologic: Reports weakness; Denies headache(s) or paresthesias Endocrine Endocrinology: Denies polydipsia, polyphagia or polyuria EXAM Physical Exam Const Vital Signs: 11/30/20 14:30 11/30/20 17:32 11/30/20 17:40 Temperature 99.1 F 100.1 F H Temperature Source Temporal Temporal Pulse Rate 91 73 Respiratory Rate 18 11 L Blood Pressure 132/65 H 126/58 H Blood Pressure Mean 87 80 Pulse Ox 98 96 Oxygen Delivery Method Room Air Room Air Positive well nourished and well developed General Appearance ED: well developed and NAD; Negative for cyanotic, diaphoretic or pallor HEENT Reports moist mucous membranes HEENT Narrative: Head is atraumatic normocephalic. Ears are normal. Nares patent. Mucosa is slightly dry. Eyes PERRL and EOMs intact bilaterally General Eye ED: Negative for pale conjunctiva or scleral icterus Neck no lymphadenopathy and supple Chest Wall inspection of chest normal and palpation of chest normal Resp normal respiratory effort and clear to auscultation bilaterally Cardio regular rate, regular rhythm, S1 normal heart sound, S2 normal heart sound and no murmurs GI normal to inspection, nondistended, normoactive bowel sounds and non-tender Palpation: soft Back/Spine Negative for no CVA tenderness Extremity Negative for normal to inspection Extremity Narrative: There is erythema dorsum of the left foot. There is lymphangitic streak approximately 10 cm above the medial malleolus. DP and PT pulse are palpable. General Extremety ED: Yes tenderness; Negative for edema General Extremity: Negative for edema Neuro oriented x3, CN's II-XII intact bilaterally and no sensory deficits noted Sensorium / Orientation: alert Motor Exam: strength 5/5 throughout Psych mental status grossly normal Skin No no rashes or lesions noted General Skin Exam: Negative for jaundice or pallor Rashes: rashes noted Erythematous warm blanching rash with lymphangitis as previously documented under the extremity portion of the chart MDM MDM MDM Narrative Medical decision making narrative: Differential diagnosis is gout and pseudogout versus cellulitis with lymphangitis. He has exquisite pain over the MTP joint of the left great toe. Gout can cause elevated temperature. However would not expect lymphangitis. Sepsis order set was initiated and treatment course skin infection. Foot x-ray reveals degenerative changes of the MTP joint. They are not classic for gout or pseudogout. Since patient has evidence of erythema warmth with lymphangitis fever to 100.8 and shaking chills will admit for cellulitis with lymphangitis. Hospitalist has seen patient and agrees with admission. Lab Data Attestation: I reviewed the patient's lab results. Lab results narrative: BC is normal with a slight shift. Coags are normal. AST and ALT are elevated. Lactate is normal. Labs: Laboratory Results - last 24 hr 11/30/20 11/30/20 11/30/20 17:20 17:20 17:20 WBC 6.4 RBC 4.03 L Hgb 11.8 L Hct 35.6 L MCV 88.3 MCH 29.3 MCHC 33.1 RDW Std Deviation 40.0 RDW Coeff of Elyse 12.4 Plt Count 193 MPV 9.4 Immature Gran % (Auto) 0.300 Neut % (Auto) 73.5 H Lymph % (Auto) 13.7 L [place] % (Auto) 9.6 Eos % (Auto) 2.3 Baso % (Auto) 0.6 Absolute Neuts (auto) 4.7 Absolute Lymphs (auto) 0.88 Nucleated RBC % 0 PT 13.8 INR 1.1 APTT 26.3 Sodium 137 Potassium 4.1 Chloride 106 Carbon Dioxide 27.0 Anion Gap 4 L BUN 13 Creatinine 0.97 Estim Creat Clear Calc 75.26 Est GFR (MDRD) Af Amer 99 Est GFR (MDRD) Non-Af 82 BUN/Creatinine Ratio 13.4 Glucose 101 Lactic Acid Calcium 8.2 L Total Bilirubin 0.70 AST 122 H ALT 170 H Alkaline Phosphatase 60 Total Protein 7.1 Albumin 3.3 Globulin 3.8 Albumin/Globulin Ratio 0.9 11/30/20 17:20 WBC RBC Hgb Hct MCV MCH MCHC RDW Std Deviation RDW Coeff of Elyse Plt Count MPV Immature Gran % (Auto) Neut % (Auto) Lymph % (Auto) [place] % (Auto) Eos % (Auto) Baso % (Auto) Absolute Neuts (auto) Absolute Lymphs (auto) Nucleated RBC % PT INR APTT Sodium Potassium Chloride Carbon Dioxide Anion Gap BUN Creatinine Estim Creat Clear Calc Est GFR (MDRD) Af Amer Est GFR (MDRD) Non-Af BUN/Creatinine Ratio Glucose Lactic Acid 1.3 Calcium Total Bilirubin AST ALT Alkaline Phosphatase Total Protein Albumin Globulin Albumin/Globulin Ratio Radiography Diagnostic Testing: Radiology Impression Foot X-Ray 11/30/20 14:31 IMPRESSION: 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 Electronically Signed: Nicanor Ahn MD at 15:02 EDT , Service support , EKG Initial EKG: Interpretation: Sinus Rhythm (Normal sinus rhythm with a ventricular of 74. EKG is normal. [place] interval 254 ms. Cures duration 78 ms. QT duration 378 ms. [place] is normal.) Discharge Plan Dx/Rx/DC Orders Clinical Impression: Cellulitis of foot, left, Lymphangitis of lower extremity Disposition Disposition: Acute Care Hospital [facility]
[2020-11-30 17:32] VITALS: BP 126/58; PULSE 73; RESP 11; O2SAT 96
[2020-11-30] MEDS: 0.9% Normal Saline 1,000 ML 250 ML IV ×2 (17:32→21:06)
[2020-11-30 17:33] LABS: Absolute Lymphocyte Count 0.88 X10^3/uL (0.83-4.51); Absolute Neutrophil Count 4.7 X10^3/uL (2.0-7.7); Basophil# 0.04 X10^3/uL; Basophil% 0.6 % (0-1); Eosinophil# 0.15 X10^3/uL; Eosinophils% 2.3 % (0-5); Hematocrit 35.6 % (40-54); Hemoglobin 11.8 g/dL (13.0-16.5); Lymphocyte # 0.88 X10^3/ul (0.83-4.51); Lymphocyte % 13.7 % (19-41); Mean Corp Hgb Conc 33.1 g/dL (32-36); Mean Corpuscular Hgb 29.3 pg (27.0-32.0); Mean Corpuscular Volume 88.3 fL (80-94); Mean Platelet Vol. 9.4 fl (6.2-12.0); Monocyte# 0.62 X10^3/uL; Monocyte% 9.6 % (0-10); NRBC Flagged by Analyzer 0 % (0-5); Neutrophil # 4.73 X10^3/uL (2.7-7.7); Neutrophil % 73.5 % (47-70); Platelet Count 193 K/mm3 (150-450); RBC Distribution Width CV 12.4 % (11.6-14.6); Red Blood Count 4.03 M/mm3 (4.6-6.2); White Blood Count 6.4 K/mm3 (4.4-11.0)
[2020-11-30] MEDS: Morphine 4 MG/ML Syringe IV (17:36)
[2020-11-30] MEDS: Ondansetron 4 MG/2 ML Vial IV (17:36)
[2020-11-30 17:40] VITALS: TEMP 37.8
[2020-11-30 17:40] LABS: International Normalized Ratio 1.1; Prothrombin Time (Protime)PT. 13.8 SECONDS (11.7-14.9)
[2020-11-30 17:41] LABS: Partial Thromboplast Time 26.3 Seconds (24.1-36.2)
[2020-11-30 17:48] LABS: ALB/GLOB Ratio 0.9 RATIO (0.9-2.4); AST(SGOT) 122 U/L (15-37); Alanine Aminotransfer ALT/SGPT 170 U/L (16-61); Albumin, Serum 3.3 g/dL (3.2-5.0); Alkaline Phosphatase 60 U/L (45-117); Anion Gap 4 (5-15); BUN 13 mg/dL (7-18); BUN/Creat Ratio 13.4 RATIO (10-20); Calcium,Total 8.2 mg/dL (8.5-10.1); Chloride 106 mmol/L (98-107); Creatinine, Serum 0.97 mg/dL (0.70-1.30); EST Glomerular Filtration Rate 82 mL/min (>60); Est Glom Filt Rate - Afr Amer 99 mL/min (>60); Estimated Creatinine Clearance 75.26 ml/min; Globulin 3.8 g/dL (2.2-4.2); Glucose 101 mg/dL (74-106); Potassium 4.1 mmol/L (3.5-5.1); Protein, Total 7.1 g/dL (6.4-8.2); Sodium Level 137 mmol/L (136-145)
[2020-11-30 17:59] LABS: Lactic Acid 1.3 mmol/L (0.4-1.9)
--- NOTE | 2020-11-30 18:21 | HP.PCM.HOS_ITS ---
Documented by User: Ariel COX 11/30/20 18:45 HPI - General General Date of Admission: 11/30/20 Date of Service: 11/30/20 Chief Complaint: Left lower extremity pain/redness HPI Narrative JEANNINE PASCUAL is a 70-year-old male who presents to the ED at [facility] on 11/30/2020 with a chief complaint of lower extremity pain/redness. Patient reports that Monday he noticed a pain in his left lower extremity starting in his toe and ascending up his foot. Patient denies any recent trauma. Patient reports that since Monday the pain in his left lower extremity has gotten progressively worse and is now included redness and swelling of the left lower extremity. Patient reports that he attempted to take some ibuprofen at home which has brought him no relief in his foot pain. Patient rates his foot pain currently at a 9 out of 10. Patient endorses fever and chills at home. Denies any other infectious symptoms to include N/V/D, cough, hemoptysis. Patient also denies calf pain or swelling or hemoptysis. Of note, patient was recently discharged on 11/17 for acute diverticulitis and was discharged on 7 days of ciprofloxacin and Flagyl. Vital signs obtained in the ED were significant for elevated temperature at 101.4 ?F. Patient does not have a white count and CBC is otherwise unremarkable. BMP is unremarkable. X-ray of the left foot did not demonstrate any acute process and only showed degenerative arthritis at the first metatarsophalangeal joint. Blood cultures were obtained in the ED and patient was initiated on Unasyn as well as getting morphine. [facility] Medical History High cholesterol Hypertension Home Medications aspirin 81 mg PO DAILY@0800 12/03/18 [History Last Taken Unknown] hydrochlorothiazide 25 mg PO DAILY 12/03/18 [History Last Taken Unknown] simvastatin 40 mg PO QHS 12/03/18 [History Last Taken Unknown] ciprofloxacin HCl [Cipro] 500 mg PO Q12H #14 tab 11/17/20 [Rx Last Taken Unknown] metronidazole [Flagyl] 500 mg PO Q8H #21 tab 11/17/20 [Rx Last Taken Unknown] Allergy/AdvReac Type Severity Reaction Status Date / Time No Known Allergies Allergy Verified 11/30/20 14:30 Family History Mother Hypertension Gout Father Legionnaires' disease Heart disease Surgical History H/O hernia repair Social History household members: spouse housing: house Smoking Status: Never smoker alcohol intake: never substance use type: does not use ROS Constitutional Constitutional: Reports chills and fever(s); Denies anorexia, change in weight, fatigue, malaise, night sweats, weakness or other Eyes Eyes: Denies blurry vision, change in eye color, change in vision, discharge from eye(s), double vision, erythema, eye pain, loss of vision or other ENT HEENT: Denies abnormal hearing, dysphagia, ear pain, epistaxis, headache(s), hearing loss, nasal congestion, nasal discharge, post nasal drip, sinus pressure, sore throat or other Cardiovascular Cardiovascular: Denies chest pain, claudication, dyspnea on exertion, edema, lightheadedness, orthopnea, palpitations, paroxysmal nocturnal dyspnea, rapid heart rate, syncope or other Respiratory/Chest Respiratory/Chest: Denies cough, dyspnea, excessive phlegm production, hemoptysis, productive cough, shortness of breath at rest, shortness of breath with exertion, wheezing or other Gastrointestinal Gastrointestinal: Denies abdominal pain, coffee ground emesis, constipation, diarrhea, dyspepsia, hematemesis, hematochezia, loose stools, melena, nausea, vomiting or other Genitourinary Genitourinary: Denies burning urination, difficulty urinating, dysuria, hematuria, nocturia, urinary frequency, urinary hesitancy, urinary incontinence, urinary urgency or other Musculoskeletal Musculoskeletal: Denies arthralgias, back pain, joint pain, joint stiffness, joint swelling, myalgias, neck pain or other Neurologic Neurologic: Denies abnormal gait, abnormal speech, confusion, disequilibrium, dizziness, focal weakness, headache(s), numbness, paresthesias, seizure-like activity, seizures, syncope, tingling, tremor(s) or other Psychiatric Psychiatric: Denies anxiety, depression, homicidal ideation, suicidal ideation or other Endocrine Endocrinology: Denies change in body appearance, cold intolerance, excessive sweating, heat intolerance, polydipsia, polyuria or other Hematologic/Lymphatic Hematologic/Lymphatic: Denies anemia, easy bleeding, easy bruising, lymphadenopathy or other Allergic/Immunologic Allergic/Immunologic: Denies rhinitis, hives, eczemia, asthma or other Vital Signs Vital Signs Vital Signs: 11/30/20 14:30 11/30/20 17:32 11/30/20 17:40 Temperature 99.1 F 100.1 F H Temperature Source Temporal Temporal Pulse Rate 91 73 Respiratory Rate 18 11 L Blood Pressure 132/65 H 126/58 H Blood Pressure Mean 87 80 Pulse Ox 98 96 Oxygen Delivery Method Room Air Room Air Weight Weight: 168 lb 6.931 oz Body Mass Index (BMI) 24.1 Physical Exam Const alert and oriented x3 General Appearance: cooperative HEENT normocephalic, head/scalp atraumatic and hearing grossly normal bilaterally Eyes PERRL, EOMs intact bilaterally and conjunctivae normal Neck no lymphadenopathy, supple and no JVD Resp normal respiratory effort, no retractions, no use of accessory muscles and clear to auscultation bilaterally Cardio regular rate, regular rhythm, no murmurs and no JVD GI normal to inspection, nondistended, normoactive bowel sounds, soft to palpation and non-tender Extremity Extremity Narrative: Swelling, redness and tenderness to palpation on the dorsal aspect of the left foot. There is some red streaking going up to the left lower extremity. Patient reports that pain is mostly isolated to the left foot. Skin no wounds and no jaundice Skin Narrative: See extremity. Neuro CN's II-XII intact bilaterally Psych affect normal Results Lab / Micro Data Result Diagrams: 11/30/20 17:20 11/30/20 17:20 Labs: Laboratory Results - last 24 hr 11/30/20 17:20: WBC 6.4, RBC 4.03 L, Hgb 11.8 L, Hct 35.6 L, MCV 88.3, MCH 29.3, MCHC 33.1, RDW Std Deviation 40.0, RDW Coeff of Elyse 12.4, Plt Count 193, MPV 9.4, Immature Gran % (Auto) 0.300, Neut % (Auto) 73.5 H, Lymph % (Auto) 13.7 L, [place] % (Auto) 9.6, Eos % (Auto) 2.3, Baso % (Auto) 0.6, Absolute Neuts (auto) 4.7, Absolute Lymphs (auto) 0.88, Nucleated RBC % 0 11/30/20 17:20: PT 13.8, INR 1.1, APTT 26.3 11/30/20 17:20: Sodium 137, Potassium 4.1, Chloride 106, Carbon Dioxide 27.0, Anion Gap 4 L, BUN 13, Creatinine 0.97, Estim Creat Clear Calc 75.26, Est GFR (MDRD) Af Amer 99, Est GFR (MDRD) Non-Af 82, BUN/Creatinine Ratio 13.4, Glucose 101, Calcium 8.2 L, Total Bilirubin 0.70, AST 122 H, ALT 170 H, Alkaline Phosphatase 60, Total Protein 7.1, Albumin 3.3, Globulin 3.8, Albumin/Globulin Ratio 0.9 11/30/20 17:20: Lactic Acid 1.3 Radiology Impression Foot X-Ray 11/30/20 14:31 IMPRESSION: 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 Electronically Signed: Nicanor hAn MD at 15:02 EDT , Service support , Assessment & Plan Assessment/Plan (1) Cellulitis of foot, left: (2) Lymphangitis of lower extremity: PLAN: Patient is a 70-year-old male presents to the ED at [facility] on 11/30/2020 with a chief complaint of left lower extremity pain/swelling/redness. Patient will be placed in observation for management of left lower extremity cellulitis. 1) left lower extremity cellulitis Patient presents to the ED with a 3-day history of left lower extremity pain/swelling. Patient reports that today his foot began to become red and pain is worsened. Physical exam shows left lower extremity pain, swelling and redness isolated to the dorsal aspect of the left foot. Patient reports that his symptoms are mainly isolated to the left foot. Patient endorses fever and chills. Denies any pain in the left lower leg, although there is some red streaking on the distal aspect of the left lower leg. Temperature is elevated in the ED at 101.4, other vital signs stable. CBC does not demonstrate a leukocytosis. Patient was initiated on Unasyn and blood cultures were obtained in the ED. working diagnosis is left lower extremity cellulitis, do not believe this is gout given that symptoms are not isolated to the first MTP but extend on the dorsal aspect of the left foot. Patient's presentation is more consistent with infection. Plan; placed on MS 3 for observation, continue Unasyn, blood cultures pending, [place] as needed, morphine as needed, CBC and BMP in a.m. 2) HTN Stable, hold hydrochlorothiazide. 3) hyperlipidemia Continue statin. CODE STATUS: Full code Advance care planning: Patient's is patient's healthcare power of prosecuting attorney and patient does have a living will on file. DVT prophylaxis - low risk, not indicated Patient seen by Ariel Lim PA-C, under the supervision of Dr. Hope. Documented by User: Dr. Deshawn Hope, 11/30/20 19:22 HPI - General General Date of Admission: 11/30/20 [facility] Medical History High cholesterol Hypertension Home Medications aspirin 81 mg PO DAILY@0800 12/03/18 [History Last Taken Unknown] hydrochlorothiazide 25 mg PO DAILY 12/03/18 [History Last Taken Unknown] simvastatin 40 mg PO QHS 12/03/18 [History Last Taken Unknown] ciprofloxacin HCl [Cipro] 500 mg PO Q12H #14 tab 11/17/20 [Rx Last Taken Unknown] metronidazole [Flagyl] 500 mg PO Q8H #21 tab 11/17/20 [Rx Last Taken Unknown] Allergy/AdvReac Type Severity Reaction Status Date / Time No Known Allergies Allergy Verified 11/30/20 14:30 Family History Mother Hypertension Gout Father Legionnaires' disease Heart disease Surgical History H/O hernia repair Social History household members: spouse housing: house Smoking Status: Never smoker alcohol intake: never substance use type: does not use Results Lab / Micro Data Result Diagrams: 11/30/20 17:20 11/30/20 17:20 Charges/Coding Addendum Addendum: Patient was seen and examined independently of Ariel Lim, he came to the ER today for evaluation of left foot redness that had been going on starting today, he did have left foot pain however starting yesterday. Patient also had a temperature of 100.9 according to his . Patient also told the emergency room physician he had chills today.Labs done in the emergency room showed a normal white blood cell count, patient's AST and ALT however were elevated. X- ray of the patient's left foot showed degenerative arthritis of the first metatarsophalangeal joint. Patient was febrile in the emergency room, his lactic acid was normal. On examination he appeared in good health and spirits. Vital signs as d ocumented. Skin warm and dry and without overt rashes. Neck without JVD, neck was supple, trachea midline, thyroid was normal. Lungs clear bilaterally, normal air movement was noted. Heart exam notable for regular rhythm, normal sounds and absence of murmurs, rubs or gallops. Abdomen unremarkable and without evidence of organomegaly, masses, or abdominal aortic enlargement. Bowel sounds are present, abdomen is not distended. Extremities-left foot is edematous and tender to palpation, it is also reddened, no cyanosis was noted, no clubbing was noted. Patient's first metatarsal joint was tender to palpation on the left. Neuro: Cranial nerves II through XII are grossly intact, no focal motor deficits were noted, sensation to light touch and pinprick intact, motor exam 5/5 throughout. Psych: Patient is alert and oriented x3, he does not appear anxious or depressed, he does not appear agitated. Patient will be placed in observation status on MedSurg 3, IV Unasyn was given to the patient in the ER, I think it is reasonable to continue the patient on IV Unasyn and reevaluate him tomorrow. I do not feel the patient has gout at this time, I am wary to place him on corticosteroids due to cellulitis of his left foot. I have reviewed Ariel Lim's history and physical including his medical assessment and plan of care and endorse it with the above additions. Visit Charges OBSV E&M: 79264 Initial observation care L3
[2020-11-30 18:27] VITALS: BP 121/61; PULSE 75; RESP 14; TEMP 38.6; O2SAT 98
[2020-11-30] MEDS: Acetaminophen 325 MG Tablet 650 MG PO (18:40)
--- NOTE | 2020-11-30 18:51 | NURSING ---
[address] castellanos cellulitis
[2020-11-30 19:12] LABS: Bacteria 0 SEEN /hpf (None Seen); Red Blood Cells-Urine 0 SEEN /hpf (0-5); White Blood Cells 0 SEEN /hpf (0-5)
[2020-11-30 19:14] LABS: Color, Urine Yellow (Yellow); Glucose, Dipstick Normal (Normal); Ketone-Dipstick Negative (Negative); Leukocyte Esterase-Dipstick 25 /ul (Negative); Nitrite-Dipstick Negative (Negative); Occult Blood-Urine 25 /ul (Negative); Protein-Dipstick 15 mg/dl (Negative); Specific Gravity, Urine 1.015 (1.002-1.030); Urine Bilirubin Dipstick Negative (Negative); Urine Clarity Clear (Clear); Urine Urobilinogen Normal (Normal)
[2020-11-30 19:25] VITALS: BMI 24.4
[2020-11-30 19:28] VITALS: BP 130/64; PULSE 73; RESP 18; TEMP 37.7; O2SAT 95
[2020-11-30 19:33] LABS: Mucous, Urine 2+ /hpf (<or=2+); Squamous Epithelial Cells - UA 5-10 SEEN /hpf (0-5)
[2020-11-30] MEDS: morphine (oral solution) 10MG/0.5ML Syringe 5 MG PO (20:56)
[2020-11-30] MEDS: Atorvastatin Calcium 20 MG Tablet PO (20:58)
[2020-11-30] MEDS: HYDROcodone Bitartrate/Apap 5/325 Tablet PO (23:25)
[2020-11-30 23:31] VITALS: BP 116/59; PULSE 74; RESP 17; TEMP 37.1; O2SAT 100
[2020-12-01] MEDS: morphine (oral solution) 10MG/0.5ML Syringe 5 MG PO ×2 (01:32→07:00)
[2020-12-01] MEDS: 0.9% Normal Saline 1,000 ML 100 ML IV ×2 (01:34→21:01)
[2020-12-01 04:15] VITALS: BP 113/61; PULSE 74; RESP 17; TEMP 37.3; O2SAT 95
[2020-12-01] MEDS: HYDROcodone Bitartrate/Apap 5/325 Tablet PO ×3 (04:16→19:38)
[2020-12-01 06:23] LABS: Absolute Lymphocyte Count 0.64 X10^3/uL (0.83-4.51); Absolute Neutrophil Count 4.2 X10^3/uL (2.0-7.7); Basophil# 0.05 X10^3/uL; Basophil% 0.9 % (0-1); Eosinophil# 0.21 X10^3/uL; Eosinophils% 3.7 % (0-5); Hematocrit 31.6 % (40-54); Hemoglobin 10.4 g/dL (13.0-16.5); Lymphocyte # 0.64 X10^3/ul (0.83-4.51); Lymphocyte % 11.2 % (19-41); Mean Corp Hgb Conc 32.9 g/dL (32-36); Mean Corpuscular Hgb 29.4 pg (27.0-32.0); Mean Corpuscular Volume 89.3 fL (80-94); Mean Platelet Vol. 9.7 fl (6.2-12.0); Monocyte# 0.58 X10^3/uL; Monocyte% 10.2 % (0-10); NRBC Flagged by Analyzer 0 % (0-5); Neutrophil # 4.21 X10^3/uL (2.7-7.7); Neutrophil % 73.6 % (47-70); Platelet Count 154 K/mm3 (150-450); RBC Distribution Width CV 12.8 % (11.6-14.6); RBC Distribution Width SD 42.1 fl (35.1-43.9); Red Blood Count 3.54 M/mm3 (4.6-6.2); White Blood Count 5.7 K/mm3 (4.4-11.0)
[2020-12-01 06:51] LABS: AST(SGOT) 106 U/L (15-37); Alanine Aminotransfer ALT/SGPT 158 U/L (16-61); Albumin, Serum 2.7 g/dL (3.2-5.0); Alkaline Phosphatase 47 U/L (45-117); Bilirubin, Direct 0.22 mg/dL (0.00-0.30); Globulin 3.1 g/dL (2.2-4.2); Protein, Total 5.8 g/dL (6.4-8.2)
--- NOTE | 2020-12-01 07:34 | PCS.PANDOC ---
PANDEMIC DOCUMENTATION INITIATED: Date: 11/23/2020 Time: 190
[2020-12-01 07:45] VITALS: BP 125/61; PULSE 71; RESP 16; TEMP 37.3; O2SAT 99
[2020-12-01] MEDS: Aspirin E.C. 81 MG Tablet PO (08:27)
[2020-12-01] MEDS: 0.9% Saline Lock 10 ML Syringe IV ×2 (08:27→14:21)
[2020-12-01] MEDS: Ketorolac 15 MG/ML Vial IV ×2 (08:28→14:21)
[2020-12-01] MEDS: 0.9% Normal Saline 1,000 ML 1 ML IV (10:33)
--- NOTE | 2020-12-01 11:44 | PN.HOSP_ITS ---
Documented by User: Ariel COX 12/01/20 11:51 Subjective Subjective Patient is a 70-year-old male comfortably resting in bed, alert and orient x3. Patient reports improvement of his left lower extremity pain, redness and swelling. Denies chest pain, shortness of breath, palpitations, hemoptysis, sputum production, fever, chills, N/V/D. Objective Data Objective Data Vital Signs: Vital Signs Temp Pulse Resp BP Pulse Ox 99.2 F H 71 16 125/61 H 99 12/01/20 07:45 12/01/20 07:45 12/01/20 07:45 12/01/20 07:45 12/01/20 07:45 Oxygen Delivery Method Room Air Weight: 170 lb 6.677 oz Body Mass Index (BMI) 24.4 Intake & Output: Intake and Output for Last 24 Hours 11/29/20 11/30/20 12/01/20 23:59 23:59 23:59 Intake Total 203.00 / 203.00 1347.02 / 1347.02 Balance 2036. / 2036. 1347.02 / 1347.02 Lab / Micro Data Result Diagrams: 12/01/20 05:50 11/30/20 17:20 Labs: Laboratory Results - last 24 hr 11/30/20 17:20: WBC 6.4, RBC 4.03 L, Hgb 11.8 L, Hct 35.6 L, MCV 88.3, MCH 29.3, MCHC 33.1, RDW Std Deviation 40.0, RDW Coeff of Elyse 12.4, Plt Count 193, MPV 9.4, Immature Gran % (Auto) 0.300, Neut % (Auto) 73.5 H, Lymph % (Auto) 13.7 L, [place] % (Auto) 9.6, Eos % (Auto) 2.3, Baso % (Auto) 0.6, Absolute Neuts (auto) 4.7, Absolute Lymphs (auto) 0.88, Nucleated RBC % 0 11/30/20 17:20: PT 13.8, INR 1.1, APTT 26.3 11/30/20 17:20: Sodium 137, Potassium 4.1, Chloride 106, Carbon Dioxide 27.0, Anion Gap 4 L, BUN 13, Creatinine 0.97, Estim Creat Clear Calc 75.26, Est GFR (MDRD) Af Amer 99, Est GFR (MDRD) Non-Af 82, BUN/Creatinine Ratio 13.4, Glucose 101, Calcium 8.2 L, Total Bilirubin 0.70, AST 122 H, ALT 170 H, Alkaline Phosphatase 60, Total Protein 7.1, Albumin 3.3, Globulin 3.8, Albumin/Globulin Ratio 0.9 11/30/20 17:20: Lactic Acid 1.3 11/30/20 18:40: Urine Color Yellow, Urine Clarity Clear, Urine pH 6.0, Ur Specific [place] 1.015, Urine Protein 15 H, Urine Glucose (UA) Normal, Urine Ketones Negative, Urine Occult Blood 25 H, Urine Nitrite Negative, Urine Bilirubin Negative, Urine Urobilinogen Normal, Ur Leukocyte Esterase 25 H, Urine RBC 0 SEEN, Urine WBC 0 SEEN, Ur Squamous Epith Cells 5-10 SEEN, Urine Bacteria 0 SEEN, Urine Mucus 2+ 12/01/20 05:50: Total Bilirubin 0.90, Direct Bilirubin 0.22, AST 106 H, ALT 158 H, Alkaline Phosphatase 47, Total Protein 5.8 L, Albumin 2.7 L, Globulin 3.1 12/01/20 05:50: WBC 5.7, RBC 3.54 L, Hgb 10.4 L, Hct 31.6 L, MCV 89.3, MCH 29.4, MCHC 32.9, RDW Std Deviation 42.1, RDW Coeff of Elyse 12.8, Plt Count 154, MPV 9.7, Immature Gran % (Auto) 0.400, Neut % (Auto) 73.6 H, Lymph % (Auto) 11.2 L, [place] % (Auto) 10.2 H, Eos % (Auto) 3.7, Baso % (Auto) 0.9, Absolute Neuts (auto) 4.2, Absolute Lymphs (auto) 0.64 L, Nucleated RBC % 0 Radiography Diagnostic Testing: Radiology Impression Foot X-Ray 11/30/20 14:31 IMPRESSION: 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 Electronically Signed: Nicanor Ahn MD at 15:02 EDT , Service support , Physical Exam Const alert, oriented x3 and no apparent distress HEENT head/scalp atraumatic and moist oral mucous membranes Head and Scalp: normocephalic Eyes PERRL, EOMs intact bilaterally and conjunctivae normal Neck no lymphadenopathy, supple and no JVD Resp normal respiratory effort, no retractions and no use of accessory muscles Cardio regular rate, regular rhythm, no murmurs and no JVD GI normal to inspection, nondistended, normoactive bowel sounds, soft to palpation and non-tender Extremity Extremity Narrative: Improved left lower extremity swelling, erythema and pain. Skin no rashes or lesions noted, no wounds and no jaundice Skin Narrative: See extremity. Neuro CN's II-XII intact bilaterally Psych affect normal Assessment & Plan Assessment/Plan (1) Cellulitis of foot, left: PLAN: Day 2 Discharge planning: Patient to be discharged home, no home health care needs or additional therapies identified. 1) left lower extremity cellulitis Improved left lower extremity pain, erythema and swelling. Patient reports that symptoms have improved with prescription of antibiotics and Toradol. Patient has not developed a leukocytosis, and CBC is otherwise unremarkable. Patient has remained afebrile and vital signs are stable. Blood cultures pending. Plan; remain on MS 3 for observation, continue Unasyn, [place] as needed, Morphine as needed, Toradol as needed. 2) HTN Stable, hold hydrochlorothiazide. 3) hyperlipidemia Continue statin. DVT prophylaxis - low risk, not indicated Patient seen by Ariel Lim PA-C, under the supervision of Dr. Berrios. Documented by User: Dr. Sherry Berrios MD 12/01/20 17:27 Objective Data Lab / Micro Data Result Diagrams: 12/01/20 05:50 11/30/20 17:20 Charges/Coding Addendum Addendum: Patient seen by Ariel Lim PA-C under my supervision Patient seen and examined. He was admitted with a complaint of left lower extremity pain and redness. Pain was mainly in the left foot and associated with erythema. He denied any recent trauma or any other insect bite. Symptoms gradually worsened so he came into the ED. X-ray of the left foot did not show any acute pathology and only showed degenerative changes of the first metatarsophalangeal joints. He has been managed for cellulitis of the left lower extremity. He still complains of pain in the left foot. He denies any fever or chills, nausea vomiting or diarrhea. Review of symptoms otherwise negative. He has remained hemodynamically stable. O/E: Const alert, oriented x3 and no apparent distress HEENT head/scalp atraumatic and moist oral mucous membranes Head and Scalp: normocephalic Eyes PERRL, EOMs intact bilaterally and conjunctivae normal Neck no lymphadenopathy, supple and no JVD Resp normal respiratory effort, no retractions and no use of accessory muscles Cardio regular rate, regular rhythm, no murmurs and no JVD GI normal to inspection, nondistended, normoactive bowel sounds, soft to palpation and non-tender Extremity Extremity Narrative: dorsum of left foot mildly swollen, erythematous, warm and tender to touch. Skin no rashes or lesions noted, no wounds and no jaundice Skin Narrative: See extremity. Neuro CN's II-XII intact bilaterally Psych affect normal Plan is continue IV Unasyn. Continue IV Toradol as well as morphine and Tylenol as needed for pain. On Lovenox for DVT prophylaxis. Rest as per KENNY Maya-see his notes which I reviewed and endorsed. Visit Charges Inpatient E&M: 57903 Subs Hosp L2
--- NOTE | 2020-12-01 14:04 | CASEMGMT ---
VOLODYMYR BURGER in to discuss BARRIOS form with patient. RN TOA explained BARRIOS form to patient, patient voiced understanding. Patient signed BARRIOS form and filed in chart. Copy of signed BARRIOS form provided to patient. Patient had no further questions or concerns at the this time.
[2020-12-01 14:19] VITALS: BP 118/51; PULSE 71; RESP 18; TEMP 37.4; O2SAT 97
[2020-12-01 19:23] VITALS: BP 160/56; PULSE 87; RESP 20; TEMP 37.1; O2SAT 97
[2020-12-01] MEDS: Atorvastatin Calcium 20 MG Tablet PO (19:38)
[2020-12-02] VITALS (7 sets, daily range): BP systolic 101–154; BP diastolic 56–77; PULSE 60–94; RESP 12–18; TEMP 36.6–38.2; O2SAT 92–95
[2020-12-02] MEDS: Ketorolac 15 MG/ML Vial IV ×3 (02:10→18:43)
[2020-12-02] MEDS: HYDROcodone Bitartrate/Apap 5/325 Tablet PO ×2 (02:15→15:08)
[2020-12-02] MEDS: 0.9% Normal Saline 1,000 ML 100 ML IV ×2 (06:34→16:41)
[2020-12-02 07:23] LABS: Absolute Lymphocyte Count 0.79 X10^3/uL (0.83-4.51); Basophil# 0.02 X10^3/uL; Basophil% 0.6 % (0-1); Eosinophil# 0.21 X10^3/uL; Eosinophils% 5.9 % (0-5); Hematocrit 31.2 % (40-54); Lymphocyte # 0.79 X10^3/ul (0.83-4.51); Lymphocyte % 22.2 % (19-41); Mean Corp Hgb Conc 32.1 g/dL (32-36); Mean Corpuscular Hgb 29.5 pg (27.0-32.0); Mean Platelet Vol. 10.1 fl (6.2-12.0); Monocyte# 0.51 X10^3/uL; Monocyte% 14.3 % (0-10); NRBC Flagged by Analyzer 0 % (0-5); Neutrophil # 2.02 X10^3/uL (2.7-7.7); Neutrophil % 56.7 % (47-70); POSITIVE MORPHOLOGY YES; Platelet Count 146 K/mm3 (150-450); RBC Distribution Width CV 12.8 % (11.6-14.6); Red Blood Count 3.39 M/mm3 (4.6-6.2); White Blood Count 3.6 K/mm3 (4.4-11.0)
[2020-12-02 07:27] LABS: Differential Indicated SCAN CRITERIA MET
[2020-12-02 08:03] LABS: Anion Gap 3 (5-15); BUN 15 mg/dL (7-18); BUN/Creat Ratio 15.3 RATIO (10-20); Calcium,Total 7.5 mg/dL (8.5-10.1); Chloride 111 mmol/L (98-107); Creatinine, Serum 0.98 mg/dL (0.70-1.30); EST Glomerular Filtration Rate 81 mL/min (>60); Est Glom Filt Rate - Afr Amer 97 mL/min (>60); Estimated Creatinine Clearance 74.49 ml/min; Glucose 109 mg/dL (74-106); Potassium 4.2 mmol/L (3.5-5.1); Sodium Level 139 mmol/L (136-145)
[2020-12-02] MEDS: Aspirin E.C. 81 MG Tablet PO (09:43)
[2020-12-02] MEDS: 0.9% Saline Lock 10 ML Syringe IV ×2 (09:43→18:43)
--- NOTE | 2020-12-02 10:38 | CASEMGMT ---
Social Work Note Per director security risk management questions, pt has completed HCPOA and LW and provided documents to [facility]. SW reviewed chart, HCPOA and LW are on file. SW printed off documents and placed on pt's chart. Valentina Johnson BRIGHT CUTTER, CABINET WORKER
--- NOTE | 2020-12-02 11:23 | PN.HOSP_ITS ---
Documented by User: Ariel COX 12/02/20 11:33 Subjective Subjective Patient is a 70-year-old male resting in bed, alert and orient x3. Patient reports return of his left lower extremity pain and return of the redness on the dorsal aspect of the left foot. Denies chest pain, shortness of breath, palpi tations, hemoptysis, sputum production, fever, chills, N/V/D. Objective Data Objective Data Vital Signs: Vital Signs Temp Pulse Resp BP Pulse Ox 98.8 F 82 14 119/67 93 12/02/20 09:33 12/02/20 09:33 12/02/20 09:33 12/02/20 09:33 12/02/20 09:33 Oxygen Delivery Method Room Air Weight: 170 lb 6.677 oz Body Mass Index (BMI) 24.4 Intake & Output: Intake and Output for Last 24 Hours 11/30/20 12/01/20 12/02/20 23:59 23:59 23:59 Intake Total 2036.00 / 2036.00 2539.35 / 2539.35 955 / 955 Balance 203.00 / 203.00 2539.35 / 2539.35 955 / 955 Lab / Micro Data Result Diagrams: 12/02/20 06:05 12/02/20 06:05 Labs: Laboratory Results - last 24 hr 12/02/20 06:05: WBC 3.6 L, RBC 3.39 L, Hgb 10.0 L, Hct 31.2 L, MCV 92.0, MCH 2 9.5, MCHC 32.1, RDW Std Deviation 43.0, RDW Coeff of Elyse 12.8, Plt Count 146 L, MPV 10.1, Immature Gran % (Auto) 0.300, Neut % (Auto) 56.7, Lymph % (Auto) 22.2, [place] % (Auto) 14.3 H, Eos % (Auto) 5.9 H, Baso % (Auto) 0.6, Absolute Neuts (auto) 2.0, Absolute Lymphs (auto) 0.79 L, Nucleated RBC % 0 12/02/20 06:05: Sodium 139, Potassium 4.2, Chloride 111 H, Carbon Dioxide 25.0, Anion Gap 3 L, BUN 15, Creatinine 0.98, Estim Creat Clear Calc 74.49, Est GFR (MDRD) Af Amer 97, Est GFR (MDRD) Non-Af 81, BUN/Creatinine Ratio 15.3, Glucose 109 H, Calcium 7.5 L Micro: Microbiology 11/30/20 18:40 Urine, Random Urine Culture - Preliminary Culture exhibits no growth. Physical Exam Const alert, oriented x3 and no apparent distress HEENT head/scalp atraumatic, moist oral mucous membranes and oropharynx normal Head and Scalp: normocephalic Eyes PERRL, EOMs intact bilaterally and conjunctivae normal Neck no lymphadenopathy, supple and no JVD Resp normal respiratory effort, no retractions, no use of accessory muscles and clear to auscultation bilaterally Cardio regular rate, regular rhythm, no murmurs and no JVD GI normal to inspection, nondistended, normoactive bowel sounds, soft to palpation and non-tender Extremity normal to inspection, full ROM and no clubbing, cyanosis or edema Extremity Narrative: Patient reports returned pain about the left lower extremity. Redness has also returned on the dorsal aspect of the left foot. Skin no rashes or lesions noted, no wounds, skin turgor normal and no jaundice Neuro CN's II-XII intact bilaterally Psych affect normal Assessment & Plan Assessment/Plan (1) Cellulitis of foot, left: PLAN: Day 3 Discharge planning: Patient to be discharged home when medically ready, no home health care needs or additional therapies identified. 1) left lower extremity cellulitis Redness and pain have returned about the left lower extremity, there is redness about the dorsal aspect of the left foot. Considering there is no white count, patient is afebrile and symptoms have returned despite ongoing therapy, patient was given 1 dose of colchicine. If patient is responsive to colchicine may consider work-up for gout/pseudogout. Blood cultures pending. Plan; remain on MS 3 for observation, continue Unasyn, [place] as needed, Morphine as needed, Toradol as needed, colchicine x1 ordered. 2) HTN Stable, hold hydrochlorothiazide. 3) hyperlipidemia Continue statin. DVT prophylaxis - low risk, not indicated Patient seen by Ariel Lim PA-C, under the supervision of Dr. Berrios. Documented by User: Dr. Sherry Berrios MD 12/02/20 15:05 Objective Data Lab / Micro Data Result Diagrams: 12/02/20 06:05 12/02/20 06:05 Charges/Coding Addendum Addendum: Patient seen by Ariel Lim PA-C under my supervision Patient seen and examined. Pain in his left foot has improved significantly, though he still does have some pain. Review of systems is otherwise negative. He has remained hemodynamically stable otherwise. O/E: Const alert, oriented x3 and no apparent distress HEENT head/scalp atraumatic and moist oral mucous membranes Head and Scalp: normocephalic Eyes PERRL, EOMs intact bilaterally and conjunctivae normal Neck no lymphadenopathy, supple and no JVD Resp normal respiratory effort, no retractions and no use of accessory muscles Cardio regular rate, regular rhythm, no murmurs and no JVD GI normal to inspection, nondistended, normoactive bowel sounds, soft to palpation and non-tender Extremity Extremity Narrative: swelling on dorsum of left foot is much better today, though he still does have some tenderness and warmth to touch. Skin no rashes or lesions noted, no wounds and no jaundice Skin Narrative: See extremity. Neuro CN's II-XII intact bilaterally Psych affect normal Continue IV Unasyn. Continue IV Toradol as well as morphine and Tylenol as needed for pain. On Lovenox for DVT prophylaxis. PT/OT consulted. Rest as per Ariel Lim PA-C's note, which I reviewed and endorsed. Visit Charges Inpatient E&M: 91461 Subs Hosp L2
[2020-12-02] MEDS: Colchicine 0.6 MG TABLET PO (15:04)
[2020-12-02 18:58] LABS: Uric Acid 5.1 mg/dL (3.5-7.2)
[2020-12-02] MEDS: Atorvastatin Calcium 20 MG Tablet PO (21:00)
[2020-12-03] MEDS: 0.9% Normal Saline 1,000 ML 100 ML IV (02:42)
[2020-12-03 02:47] VITALS: BP 137/81; PULSE 72; RESP 18; TEMP 37.2; O2SAT 92
[2020-12-03 06:49] LABS: Absolute Lymphocyte Count 0.62 X10^3/uL (0.83-4.51); Absolute Neutrophil Count 1.6 X10^3/uL (2.0-7.7); Basophil# 0.02 X10^3/uL; Basophil% 0.7 % (0-1); Eosinophils% 6.8 % (0-5); Hematocrit 30.9 % (40-54); Hemoglobin 10.3 g/dL (13.0-16.5); Lymphocyte # 0.62 X10^3/ul (0.83-4.51); Lymphocyte % 20.9 % (19-41); Mean Corp Hgb Conc 33.3 g/dL (32-36); Mean Corpuscular Volume 90.1 fL (80-94); Mean Platelet Vol. 9.8 fl (6.2-12.0); Monocyte# 0.47 X10^3/uL; Monocyte% 15.9 % (0-10); NRBC Flagged by Analyzer 0 % (0-5); Neutrophil # 1.64 X10^3/uL (2.7-7.7); Neutrophil % 55.4 % (47-70); POSITIVE MORPHOLOGY YES; Platelet Count 157 K/mm3 (150-450); RBC Distribution Width CV 12.7 % (11.6-14.6); RBC Distribution Width SD 41.7 fl (35.1-43.9); Red Blood Count 3.43 M/mm3 (4.6-6.2)
[2020-12-03 07:00] LABS: Differential Indicated SCAN CRITERIA MET
[2020-12-03 07:16] LABS: Anion Gap 5 (5-15); BUN 12 mg/dL (7-18); BUN/Creat Ratio 14.3 RATIO (10-20); Calcium,Total 7.4 mg/dL (8.5-10.1); Chloride 111 mmol/L (98-107); Creatinine, Serum 0.84 mg/dL (0.70-1.30); EST Glomerular Filtration Rate 96 mL/min (>60); Est Glom Filt Rate - Afr Amer 116 mL/min (>60); Glucose 100 mg/dL (74-106); Potassium 4.2 mmol/L (3.5-5.1); Sodium Level 139 mmol/L (136-145)
[2020-12-03 07:23] VITALS: BP 156/72; PULSE 82; RESP 14; TEMP 37.1; O2SAT 93
[2020-12-03] MEDS: Aspirin E.C. 81 MG Tablet PO (07:27)
[2020-12-03] MEDS: predniSONE 20 MG Tablet 40 MG PO (09:14)
--- NOTE | 2020-12-03 10:52 | PCM.DC ---
Discharge Instructions Diet Discharge Diet: No restrictions Activity Discharge Activity: Return to Normal Activity Dressing / Incision Call your doctor if your incision/area has: Increased Pain/ Swelling and Increased Redness Call your doctor if you observe: Fever of 101 or Higher and Uncontrolled pain Follow Up Care Test Results: Test results from this visit will be discussed in further detail at your follow-up appointment, if applicable. Discharge Plan Admission Admit Date/Time: 11/30/20 18:36 Primary Reason for Your Visit: Left lower extremity cellulitis/gout Attending Provider: Sherry Berrios Primary Care Provider: Lacy Menard Discharge Orders/Prescriptions Prescriptions: New prednisone 20 mg tablet 40 mg PO DAILY Qty: 10 RF: 0 cephalexin 500 mg capsule 500 mg PO TID 5 Days Qty: 15 RF: 0 Continued simvastatin 40 MG tablet 40 mg PO QHS RF: 0 hydrochlorothiazide 25 MG tablet 25 mg PO DAILY RF: 0 aspirin 81 MG tablet 81 mg PO 1900 RF: 0 Referrals / Follow Up: Lacy Menard MD [Primary Care Provider] - See Referral Note (3-5 Days) Disposition Disposition (needs filled in before D/C Order can be placed): Home, Self Care
--- NOTE | 2020-12-03 11:17 | DS.PCM_ITS ---
Documented by User: Anna Swartz NP, PRODUCTION ILLUSTRATOR-C 12/03/20 11:28 Providers Date of Admission: 11/30/20 Date of Discharge: 12/03/20 Primary Care Physician: Dr. Lacy Menard MD Reason For Visit: CELLULITIS Diagnosis Discharge Diagnosis (1) Cellulitis of foot, left: Status: Acute Code(s): L03.116 - Cellulitis of left lower limb Medications at Discharge Home Medications aspirin 81 mg PO 1900 12/03/18 hydrochlorothiazide 25 mg PO DAILY 12/03/18 simvastatin 40 mg PO QHS 12/03/18 cephalexin 500 mg PO TID 5 Days #15 cap 12/03/20 prednisone 40 mg PO DAILY #10 tab 12/03/20 Hospital Course Operations None Procedures None Summary of Care Provided Minutes Spent on Discharge: 35 Hospital Course: Patient is a 70-year-old male admitted 11/30/2020 due to left lower extremity pain and redness. 1. Left lower extremity cellulitis and left great toe gout-given severity of pain with single joint lower extremity involvement at the base of the great toe, more suspicious of gout flare. Patient has no involvement of redness, warmth above the area of left great toe. He has very pointed tenderness to left great toe joint. Patient denies history of gout. Uric acid level normal however this does not rule out gout. Continue Keflex at discharge to complete course of antibiotics empirically as patient did have fever on admission however this may be present with gout flare as well. Prednisone 40 mg for 5 days. Follow-up with PCP in 3 to 5 days. 2. Hypertension-stable, HCTZ continued at discharge. He is on 25 mg daily, lower doses not found to be associated with gout flare. 3. Hyperlipidemia-continue statin. 4. Recent diverticulitis admission-patient reports ongoing bloating however den ies abdominal pain or further symptoms. Completed course of antibiotics. He is to follow-up with Dr. Hurtado for outpatient colonoscopy. Patient seen and examined prior to discharge. Physical assessment as noted below. Patient is stable for discharge with follow up recommendations as noted above. This patient was seen by Anna Swartz NP-C under the supervision of Dr. Berrios. Physical Exam Const alert, oriented x3 and no apparent distress Orientation / Consciousness: awake, oriented to person, oriented to place and oriented to time HEENT normocephalic and moist oral mucous membranes Eyes PERRL, EOMs intact bilaterally and conjunctivae normal Neck no lymphadenopathy Resp normal respiratory effort and clear to auscultation bilaterally Cardio regular rate, regular rhythm and no murmurs Peripheral Pulses: pulses 2+ throughout GI normal to inspection, nondistended, normoactive bowel sounds, non-tender and non-distended Extremity normal to inspection Skin no rashes or lesions noted Skin Narrative: Left great toe joint redness, warmth. Lesions: no lesions Rashes: no rashes Trauma: no lacerations or abrasions Neuro CN's II-XII intact bilaterally, no focal motor deficits, no sensory deficits noted and deep tendon reflexes 2+ bilaterally Psych mental status grossly normal and affect normal Weight / BMI Weight Weight: 170 lb 6.677 oz Body Mass Index (BMI) 24.4 ABG / Lab / Microbiology Data Result Diagrams: 12/03/20 06:10 12/03/20 06:10 Laboratory: Laboratory Results - last 24 hr 12/02/20 06:05: Uric Acid 5.1 12/03/20 06:10: WBC 3.0 L, RBC 3.43 L, Hgb 10.3 L, Hct 30.9 L, MCV 90.1, MCH 30.0, MCHC 33.3, RDW Std Deviation 41.7, RDW Coeff of Elyse 12.7, Plt Count 157, MPV 9.8, Immature Gran % (Auto) 0.300, Neut % (Auto) 55.4, Lymph % (Auto) 20.9, [place] % (Auto) 15.9 H, Eos % (Auto) 6.8 H, Baso % (Auto) 0.7, Absolute Neuts (auto) 1.6 L, Absolute Lymphs (auto) 0.62 L, Nucleated RBC % 0 12/03/20 06:10: Sodium 139, Potassium 4.2, Chloride 111 H, Carbon Dioxide 23.0, Anion Gap 5, BUN 12, Creatinine 0.84, Estim Creat Clear Calc 86.90, Est GFR (MDRD) Af Amer 116, Est GFR (MDRD) Non-Af 96, BUN/Creatinine Ratio 14.3, Glucose 100, Calcium 7.4 L Microbiology: Microbiology 11/30/20 18:40 Urine, Random Urine Culture - Final Culture exhibits no growth. D/C Instructions Discharge Diet: No restrictions Call your doctor if your incision/area has: Increased Pain/ Swelling and Increased Redness Call your doctor if you observe: Fever of 101 or Higher and Uncontrolled pain Meaningful Use Info Meaningful Use Diagnoses (Choose all that apply): None applicable Discharge Plan Admission Admit Date/Time: 11/30/20 18:36 Primary Reason for Your Visit: Left lower extremity cellulitis/gout Attending Provider: Sherry Berrios Primary Care Provider: Lacy Menard Discharge Orders/Prescriptions Prescriptions: New prednisone 20 mg tablet 40 mg PO DAILY Qty: 10 RF: 0 cephalexin 500 mg capsule 500 mg PO TID 5 Days Qty: 15 RF: 0 Continued simvastatin 40 MG tablet 40 mg PO QHS RF: 0 hydrochlorothiazide 25 MG tablet 25 mg PO DAILY RF: 0 aspirin 81 MG tablet 81 mg PO 1900 RF: 0 Referrals / Follow Up: Mitchel Hurtado MD [STAFF PHYSICIAN] - See Referral Note (Call for follow-up for outpatient colonoscopy) Lacy Menard MD [Primary Care Provider] - See Referral Note (3-5 Days) Disposition Disposition (needs filled in before D/C Order can be placed): Home, Self Care Documented by User: Dr. Sherry Berrios MD 12/03/20 16:18 Providers Date of Admission: 11/30/20 Reason For Visit: CELLULITIS Medications at Discharge Home Medications aspirin 81 mg PO 1900 12/03/18 hydrochlorothiazide 25 mg PO DAILY 12/03/18 simvastatin 40 mg PO QHS 12/03/18 cephalexin 500 mg PO TID 5 Days #15 cap 12/03/20 prednisone 40 mg PO DAILY #10 tab 12/03/20 ABG / Lab / Microbiology Data Result Diagrams: 12/03/20 06:10 12/03/20 06:10 Discharge Plan Admission Admit Date/Time: 11/30/20 18:36 Primary Reason for Your Visit: Left lower extremity cellulitis/gout Attending Provider: Sherry Berrios Primary Care Provider: Lacy Menard Discharge Orders/Prescriptions Prescriptions: New prednisone 20 mg tablet 40 mg PO DAILY Qty: 10 RF: 0 cephalexin 500 mg capsule 500 mg PO TID 5 Days Qty: 15 RF: 0 Continued simvastatin 40 MG tablet 40 mg PO QHS RF: 0 hydrochlorothiazide 25 MG tablet 25 mg PO DAILY RF: 0 aspirin 81 MG tablet 81 mg PO 1900 RF: 0 Referrals / Follow Up: Mitchel Hurtado MD [STAFF PHYSICIAN] - See Referral Note (Call for follow-up for outpatient colonoscopy) Lacy Menard MD [Primary Care Provider] - See Referral Note (3-5 Days) Disposition Disposition (needs filled in before D/C Order can be placed): Home, Self Care Charges/Coding Addendum Addendum: Patient seen by Anna LOVE under my supervision Patient is a 70 y/o with a PMH as outlined who was admitted with a complaint of left lower extremity pain and redness. Pain was mainly in the left foot and associated with erythema. He denied any recent trauma or any other insect bite. Symptoms gradually worsened so he came into the ED. X-ray of the left foot did not show any acute pathology and only showed degenerative changes of the first metatarsophalangeal joints. He was admitted to be managed for cellulitis of the left lower extremity. He was started on IV unasyn. He was also given colchicine for probable gout, though his uric acid was WNL. Patient's pain impro galina markedly and he felt much better and was able to weight bear on the foot. He was remained stable and was discharged home on PO Keflex as well as a course of oral prednisone. He is to follow u with his PCP in 1-2 weeks. Patient seen and examined prior to discharge. He had no complaints and felt well. Review of systems otherwise negative. Labs and vitals reviewed. Home meds reviewed and reconciled. O/E: Const alert, oriented x3 and no apparent distress HEENT head/scalp atraumatic, moist oral mucous membranes and oropharynx normal Head and Scalp: normocephalic Eyes PERRL, EOMs intact bilaterally and conjunctivae normal Neck no lymphadenopathy, supple and no JVD Resp normal respiratory effort, no retractions, no use of accessory muscles and clear to auscultation bilaterally Cardio regular rate, regular rhythm, no murmurs and no JVD GI normal to inspection, nondistended, normoactive bowel sounds, soft to palpation and non-tender Extremity normal to inspection, full ROM and no clubbing, cyanosis or edema Extremity Narrative: redness, swelling and tenderness of dorsum of left foot has improved. he still has some tenderness over the first MTP joint of the left foot. Skin no rashes or lesions noted, no wounds, skin turgor normal and no jaundice Neuro CN's II-XII intact bilaterally Psych affect normal Plan is for discharge home today. Rest as per Anna Swartz PRODUCTION ILLUSTRATOR-C's note, which I have reviewed and endorsed. Visit Charges Inpatient E&M: 73120 Disch Hosp
== END 2020-12-03 13:27 | disposition home or self-care (01) ==
LOC: ED 18:26 → MS3 18:49
PROVIDERS: Physician Assistant; Admitting Provider Internal Medicine; Emergency Provider Emergency Medicine; PCP Family Medicine; Visit Provider Student in an Organized Health Care Education/Training Program
DX: L03.116 Cellulitis of left lower limb (principal); I10 Essential (primary) hypertension; E78.5 Hyperlipidemia, unspecified; M19.072 Primary osteoarthritis, left ankle and foot; M10.9 Gout, unspecified; Z79.899 Other long term (current) drug therapy; Z79.82 Long term (current) use of aspirin; M79.89 Other specified soft tissue disorders
CPT/HCPCS: 36415; 73630; 80048; 80053; 80076; 81001; 83605; 84550; 85025; 85610; 85730; 87040; 87086; 93005; 96361; 96365; 96366; 96375; 96376; 97161; 99218; 99285; J7030; A4216; G0378; J0295; J2405

== ENCOUNTER → 2021-09-17 | Outpatient (CLI) | payer MEDICARE, BC, SELFPAY ==
[2021-09-17 17:36] LABS: Absolute Lymphocyte Count 1.53 X10^3/uL (0.83-4.51); Absolute Neutrophil Count 3.5 X10^3/uL (2.0-7.7); Basophil# 0.02 X10^3/uL; Basophil% 0.4 % (0-1); Eosinophil# 0.11 X10^3/uL; Hematocrit 37.8 % (40-54); Hemoglobin 12.3 g/dL (13.0-16.5); Lymphocyte # 1.53 X10^3/ul (0.83-4.51); Lymphocyte % 27.4 % (19-41); Mean Corp Hgb Conc 32.5 g/dL (32-36); Mean Corpuscular Hgb 29.9 pg (27.0-32.0); Mean Corpuscular Volume 91.7 fL (80-94); Mean Platelet Vol. 10.2 fl (6.2-12.0); Monocyte# 0.38 X10^3/uL; Monocyte% 6.8 % (0-10); NRBC Flagged by Analyzer 0 % (0-5); Neutrophil # 3.53 X10^3/uL (2.7-7.7); Neutrophil % 63.2 % (47-70); Platelet Count 224 K/mm3 (150-450); RBC Distribution Width CV 12.1 % (11.6-14.6); RBC Distribution Width SD 40.5 fl (35.1-43.9); Red Blood Count 4.12 M/mm3 (4.6-6.2); White Blood Count 5.6 K/mm3 (4.4-11.0)
[2021-09-17 17:48] LABS: ALB/GLOB Ratio 1.2 RATIO (0.9-2.4); AST(SGOT) 25 U/L (15-37); Alanine Aminotransfer ALT/SGPT 34 U/L (16-61); Alkaline Phosphatase 63 U/L (45-117); Anion Gap 5 (5-15); BUN 16 mg/dL (7-18); BUN/Creat Ratio 12.5 RATIO (10-20); Calcium,Total 8.9 mg/dL (8.5-10.1); Chloride 107 mmol/L (98-107); Cholesterol 154 mg/dL (200); Creatinine, Serum 1.28 mg/dL (0.70-1.30); EST Glomerular Filtration Rate 59 mL/min (>60); Est Glom Filt Rate - Afr Amer 72 mL/min (>60); Globulin 3.4 g/dL (2.2-4.2); Glucose 89 mg/dL (74-106); High Density Lipoprotein 61 mg/dL; Potassium 4.1 mmol/L (3.5-5.1); Protein, Total 7.4 g/dL (6.4-8.2); Sodium Level 139 mmol/L (136-145); Triglycerides 121 mg/dL; Very Low Density Lipoprotein 24 mg/dL (5-40)
== END | disposition home or self-care (01) ==
LOC: MTLAB 14:36
PROVIDERS: PCP Family Medicine; Referring Provider Family Medicine; Visit Provider Family Medicine
DX: Z00.00 Encounter for general adult medical examination without abnormal findings (principal); M10.9 Gout, unspecified; I10 Essential (primary) hypertension; E78.5 Hyperlipidemia, unspecified
CPT/HCPCS: 36415; 80053; 80061; 85025

== ENCOUNTER → 2022-09-23 | Outpatient (CLI) | payer MEDICARE, BC, SELFPAY ==
[2022-09-23 12:09] LABS: Absolute Lymphocyte Count 1.02 X10^3/uL (0.83-4.51); Absolute Neutrophil Count 1.8 X10^3/uL (2.0-7.7); Basophil# 0.03 X10^3/uL; Basophil% 0.9 % (0-1); Eosinophil# 0.09 X10^3/uL; Eosinophils% 2.7 % (0-5); Hematocrit 42.3 % (40-54); Lymphocyte # 1.02 X10^3/ul (0.83-4.51); Lymphocyte % 30.8 % (19-41); Mean Corp Hgb Conc 33.1 g/dL (32-36); Mean Corpuscular Hgb 30.2 pg (27.0-32.0); Mean Corpuscular Volume 91.2 fL (80-94); Mean Platelet Vol. 10.5 fl (6.2-12.0); Monocyte# 0.33 X10^3/uL; NRBC Flagged by Analyzer 0 % (0-5); Neutrophil # 1.84 X10^3/uL (2.7-7.7); Neutrophil % 55.6 % (47-70); Platelet Count 185 K/mm3 (150-450); RBC Distribution Width CV 11.9 % (11.6-14.6); RBC Distribution Width SD 39.6 fl (35.1-43.9); Red Blood Count 4.64 M/mm3 (4.6-6.2); White Blood Count 3.3 K/mm3 (4.4-11.0)
[2022-09-23 12:33] LABS: ALB/GLOB Ratio 1.1 RATIO (0.9-2.4); AST(SGOT) 29 U/L (15-37); Alanine Aminotransfer ALT/SGPT 45 U/L (16-61); Albumin, Serum 3.9 g/dL (3.2-5.0); Alkaline Phosphatase 58 U/L (45-117); Anion Gap 7 (5-15); BUN 23 mg/dL (7-18); BUN/Creat Ratio 22.1 RATIO (10-20); Calcium,Total 8.8 mg/dL (8.5-10.1); Chloride 105 mmol/L (98-107); Cholesterol 150 mg/dL (200); Creatinine, Serum 1.04 mg/dL (0.70-1.30); EST Glomerular Filtration Rate 75 mL/min (>60); Est Glom Filt Rate - Afr Amer 91 mL/min (>60); Globulin 3.5 g/dL (2.2-4.2); Glucose 109 mg/dL (74-106); High Density Lipoprotein 53 mg/dL; PSA,Total - Annual Screen 1.14 ng/mL (0.00-4.00); Potassium 3.9 mmol/L (3.5-5.1); Protein, Total 7.4 g/dL (6.4-8.2); Sodium Level 140 mmol/L (136-145); Triglycerides 149 mg/dL; Very Low Density Lipoprotein 30 mg/dL (5-40)
== END | disposition home or self-care (01) ==
LOC: BIMLAB 10:22
PROVIDERS: PCP Family Medicine; Referring Provider Family Medicine; Visit Provider Family Medicine
DX: Z00.00 Encounter for general adult medical examination without abnormal findings (principal); Z12.5 Encounter for screening for malignant neoplasm of prostate; I10 Essential (primary) hypertension
CPT/HCPCS: 36415; 80053; 80061; 84153; 85025; G0103

== ENCOUNTER → 2023-09-30 | Outpatient (CLI) | payer MEDICARE, BC, SELFPAY ==
[2023-09-30 09:22] LABS: Absolute Lymphocyte Count 1.12 X10^3/uL (0.83-4.51); Absolute Neutrophil Count 2.3 X10^3/uL (2.0-7.7); Basophil# 0.02 X10^3/uL; Basophil% 0.5 % (0-1); Eosinophil# 0.14 X10^3/uL; Eosinophils% 3.6 % (0-5); Hematocrit 36.1 % (40-54); Lymphocyte # 1.12 X10^3/ul (0.83-4.51); Mean Corp Hgb Conc 33.2 g/dL (32-36); Mean Corpuscular Hgb 29.9 pg (27.0-32.0); Mean Platelet Vol. 9.5 fl (6.2-12.0); Monocyte# 0.31 X10^3/uL; NRBC Flagged by Analyzer 0 % (0-5); Neutrophil # 2.26 X10^3/uL (2.7-7.7); Neutrophil % 58.6 % (47-70); Platelet Count 168 K/mm3 (150-450); RBC Distribution Width CV 11.9 % (11.6-14.6); RBC Distribution Width SD 38.7 fl (35.1-43.9); Red Blood Count 4.01 M/mm3 (4.6-6.2); White Blood Count 3.9 K/mm3 (4.4-11.0)
[2023-09-30 09:45] LABS: ALB/GLOB Ratio 1.2 RATIO (0.9-2.4); AST(SGOT) 25 U/L (15-37); Alanine Aminotransfer ALT/SGPT 29 U/L (16-61); Albumin, Serum 3.8 g/dL (3.2-5.0); Alkaline Phosphatase 63 U/L (45-117); Anion Gap 5 (5-15); BUN 21 mg/dL (7-18); BUN/Creat Ratio 17.9 RATIO (10-20); Calcium,Total 8.8 mg/dL (8.5-10.1); Chloride 106 mmol/L (98-107); Cholesterol 142 mg/dL (200); Creatinine, Serum 1.17 mg/dL (0.70-1.30); EST Glomerular Filtration Rate 65 mL/min (>60); Est Glom Filt Rate - Afr Amer 79 mL/min (>60); Globulin 3.3 g/dL (2.2-4.2); Glucose 116 mg/dL (74-106); High Density Lipoprotein 51 mg/dL; Potassium 3.8 mmol/L (3.5-5.1); Protein, Total 7.1 g/dL (6.4-8.2); Sodium Level 139 mmol/L (136-145); Triglycerides 102 mg/dL; Very Low Density Lipoprotein 20 mg/dL (5-40)
== END | disposition home or self-care (01) ==
PROVIDERS: PCP Family Medicine; Referring Provider Family Medicine; Visit Provider Family Medicine
DX: Z00.00 Encounter for general adult medical examination without abnormal findings (principal); I10 Essential (primary) hypertension; E78.5 Hyperlipidemia, unspecified
CPT/HCPCS: 36415; 80053; 80061; 85025

== ENCOUNTER → 2024-10-02 | Outpatient (CLI) | payer MEDICARE, BC, SELFPAY ==
[2024-10-02 12:40] LABS: Absolute Lymphocyte Count 1.21 X10^3/uL (0.83-4.51); Absolute Neutrophil Count 2.8 X10^3/uL (2.0-7.7); Basophil# 0.02 X10^3/uL; Basophil% 0.4 % (0-1); Eosinophil# 0.07 X10^3/uL; Eosinophils% 1.6 % (0-5); Hematocrit 40.6 % (40-54); Hemoglobin 13.8 g/dL (13.0-16.5); Lymphocyte # 1.21 X10^3/ul (0.83-4.51); Mean Corpuscular Hgb 30.4 pg (27.0-32.0); Mean Corpuscular Volume 89.4 fL (80-94); Mean Platelet Vol. 10.2 fl (6.2-12.0); Monocyte# 0.34 X10^3/uL; Monocyte% 7.6 % (0-10); NRBC Flagged by Analyzer 0 % (0-5); Neutrophil # 2.83 X10^3/uL (2.7-7.7); Neutrophil % 63.2 % (47-70); Platelet Count 204 K/mm3 (150-450); RBC Distribution Width CV 11.8 % (11.6-14.6); Red Blood Count 4.54 M/mm3 (4.6-6.2); White Blood Count 4.5 K/mm3 (4.4-11.0)
[2024-10-02 13:07] LABS: ALB/GLOB Ratio 1.5 RATIO (0.9-2.4); AST(SGOT) 26 U/L (<=37); Alanine Aminotransfer ALT/SGPT 23 U/L (<=46); Albumin, Serum 4.4 g/dL (3.4-4.8); Alkaline Phosphatase 68 U/L (40-129); Anion Gap 12 (5-15); BUN 23 mg/dL (4-19); BUN/Creat Ratio 20.8 RATIO (10-20); Calcium,Total 9.3 mg/dL (7.6-11.0); Carbon Dioxide 25.5 mmol/L (21.0-32.0); Chloride 103 mmol/L (98-108); Cholesterol 155 mg/dL (<=200); Creatinine, Serum 1.09 mg/dL (0.70-1.20); EST Glomerular Filtration Rate 72 (>60); Glucose 108 mg/dL (70-99); High Density Lipoprotein 51 mg/dL; Low Density Lipoprotein Calc. 80 mg/dL; Potassium 4.2 mmol/L (3.3-5.1); Protein, Total 7.4 g/dL (5.9-8.4); Sodium Level 140 mmol/L (133-145); Total Bilirubin 0.37 mg/dL (0.00-1.30); Triglycerides 118 mg/dL; Very Low Density Lipoprotein 24 mg/dL (5-40); cholesterol:hdl ratio screen 3.03
== END | disposition home or self-care (01) ==
LOC: BIMLAB 10:34
PROVIDERS: PCP Family Medicine; Referring Provider Family Medicine; Visit Provider Family Medicine
DX: Z00.00 Encounter for general adult medical examination without abnormal findings (principal); I10 Essential (primary) hypertension; E78.5 Hyperlipidemia, unspecified
CPT/HCPCS: 36415; 80053; 80061; 85025